=== PATIENT | female | born 1980 | race Caucasian/White ===

== ENCOUNTER → 2021-01-15 00:12 | Outpatient (CLI) | payer OTHER, SELFPAY ==
[2021-01-15 16:57] LABS: SARS-CoV-2 RNA PCR Positive
== END ==
PROVIDERS: Visit Provider Obstetrics & Gynecology
DX: U07.1 COVID-19 (principal)
CPT/HCPCS: C9803; U0003; U0005

== ENCOUNTER 2024-11-21 13:01 | Outpatient (CLI) | payer OTHER, SELFPAY ==
[2024-11-21 13:43] LABS: Hematocrit 40.8 % (37.0-47.0)
--- OUTSIDE RECORDS SUMMARY | 2024-11-22 13:45 | XMS_ITS | Data Portability ---
Author Organization [facility] Address [address] [place] [address] Care Team Providers Care Bed And Breakfast Cook Name Role Phone BROOKSPAULINA Primary Care Provider Assessment No assessment recorded. Plan of Treatment Reminders Order Date Submit Date Provider Last Modified By Organization Details Last Modified Time Details Appointments Robotic TLH 2024 10:30A M Sadia JUAREZ MD Not available Not available Not available Lab TSH, serum or plasma 2020 021 [facility] (Lab), [address] [place], [address], 12/23/2020 02:57:59 CBC w/ auto diff 2020 021 [facility] (Lab), [address], [place], [address], 12/23/2020 02:57:58 prolactin , serum 2020 021 [facility] (Lab), [address], [place], [address], 12/23/2020 02:57:59 Referral None recorded. Procedures None recorded. Surgeries robotic assisted hysterect luis f w/bilater al salpingo- oophorect luis f (SURG) 2024 025 [facility], [facility] [address], [place], [address], 09/25/2024 09:56:54 hysterosc opy, with endometri al ablation (SURG) 2020 021 [email or web address] [facility], [address], [place], [address], 01/27/2021 12:44:36 salpingec vivienne, laparosco pic (SURG) 2020 021 [email or web address] [facility], [address], [place], [address], 01/27/2021 12:44:37 Imaging US, pelvis 2020 021 [email or web address] [place], [address], [place], [address], 12/22/2020 15:36:30 US, transvagi nal 2020 021 KARSON [place], [address], [place], [address], 12/23/2020 16:42:18 US, pelvis, complete 2020 021 [email or web address] Not available 11/11/2021 10:11:41 Medication Orders norethind olivier acetate 5 mg tablet 2024 025 [email or web address] [id number], [address], [place], [address], 10/06/2024 09:10:21 progester one micronize d 200 mg capsule 2020 021 [email or web address] Not available 09/12/2024 12:38:27 Patient TargetsNo targets recorded. Patient InstructionsNo instructions recorded. Reason for Referral None Reported. Results Created Date Observation Date Name Description Value Unit Range Abnormal Flag Note LastModifiedBy Organization Detail LastModifiedTime 12/23/19 21 12/22/2020 CBC w/ auto diff WBC 6.2 10'3/ uL 3.6-10 .2 Not Available [facility] (Lab) [address], [place], [address], 12/23/2020 02:57:58 12/23/19 21 12/22/2020 CBC w/ auto diff RBC 3.30 10'6/ uL (based on docume nted legal sex) 4.10-5 .30 low Not Available [facility] (Lab) [address] , [place], [address], 12/23/2020 02:57:58 12/23/19 21 12/22/2020 CBC w/ auto diff HGB 9.2 g/dL (based on docume nted legal sex) 11.9-1 5.8 low Not Available [facility] (Lab) [address], [place], [address], 12/23/2020 02:57:58 12/23/19 21 12/22/2020 CBC w/ auto diff HCT 31.1 % (based on docume nted legal sex) 37.4-4 8.3 low Not Available [facility] (Lab) [address], [place], [address], 12/23/2020 02:57:58 12/23/19 21 12/22/2020 CBC w/ auto diff MCV 93.0 fL 82.0-9 9.0 Not Available [facility] (Lab) [address], [place], [address], 12/23/2020 02:57:58 12/23/1912/22/2020 CBC w/ auto diff MCH 28.0 pg 27.0-3 3.0 Not Available [facility] (Lab) [address], [place], [address], 12/23/2020 02:57:58 12/23/19 21 12/22/2020 CBC w/ auto diff MCHC 30.0 g/dL 32.0-3 6.0 low Not Available [facility] (Lab) [address] [place], [address], 12/23/2020 02:57:58 12/23/1912/22/2020 CBC w/ auto diff RDW 17.0 % 11.0-1 5.0 high Not Available [facility] (Lab) [address], [place], [address], 12/23/2020 02:57:58 12/23/19 21 12/22/2020 CBC w/ auto diff plt 305 10'3/ uL 150-45 0 Not Available [facility] (Lab) [address], [place], [address], 12/23/2020 02:57:58 12/23/19 21 12/22/2020 CBC w/ auto diff MPV 10.3 fL Not Available [facility] (Lab) [address], [place], [address], 12/23/2020 02:57:58 12/23/19 21 12/22/2020 CBC w/ auto diff NRBC's 0.00 % 0 Not Available [facility] (Lab) [address], [place], [address], 12/23/2020 02:57:58 12/23/19 21 12/22/2020 CBC w/ auto diff absolute NRBCs 0.0 10'3/ uL 0 Not Available [facility] (Lab) [address], [place], [address], 12/23/2020 02:57:58 12/23/1912/22/2020 CBC w/ auto diff neutrophils 68.0 % 37.0-7 2.0 Not Available [facility] (Lab) [address], [place], [address], 12/23/2020 02:57:58 12/23/1912/22/2020 CBC w/ auto diff lymphocytes 19.0 % 16.0-4 8.0 Not Available [facility] (Lab) [address], [place], [address], 12/23/2020 02:57:58 12/23/1912/22/2020 CBC w/ auto diff monocytes 11.0 % 4.0-14 .0 Not Available [facility] (Lab) [address] [place], [address], 12/23/2020 02:57:58 12/23/19 21 12/22/2020 CBC w/ auto diff eosinophils 1.0 % 0.0-9. 0 Not Available [facility] (Lab) [address] [place], [address], 12/23/2020 02:57:58 12/23/19 21 12/22/2020 CBC w/ auto diff basophils 1.0 % 0.0-2. 0 Not Available [facility] (Lab) [address] [place], [address], 12/23/2020 02:57:58 12/23/19 21 12/22/2020 CBC w/ auto diff immature granulocytes 0.0 % no define d refere nce range Not Available [facility] (Lab) [address], [place], [address], 12/23/2020 02:57:58 12/23/19 21 12/22/2020 CBC w/ auto diff absolute neutrophils 4.2 10'3/ uL 1.1-6. 0 Not Available [facility] (Lab) [address] [place], [address], 12/23/2020 02:57:58 12/23/19 21 12/22/2020 CBC w/ auto diff absolute lymphocytes 1.2 10'3/ uL 0.7-3. 4 Not Available [facility] (Lab) [address] [place], [address], 12/23/2020 02:57:58 12/23/19 21 12/22/2020 CBC w/ auto diff absolute monocytes 0.7 10'3/ uL 0.3-1. 0 Not Available [facility] (Lab) [address] [place], [address], 12/23/2020 02:57:58 12/23/19 21 12/22/2020 CBC w/ auto diff absolute eosinophils 0.1 10'3/ uL 0.0-0. 6 Not Available [facility] (Lab) [address], [place], [address], 12/23/2020 02:57:58 12/23/19 21 12/22/2020 CBC w/ auto diff absolute basophils 0.1 10'3/ uL 0.0-0. 1 Not Available [facility] (Lab) [address], [place], [address], 12/23/2020 02:57:58 12/23/19 21 12/22/2020 CBC w/ auto diff absolute immature granulocytes 0.00 10'3/ uL 0.00-0 .10 021 1:06 AM: P indic ates parti al resul ts on a panel have been relea sed. Addit ional resul ts will follo w. 021 1:06 AM: This resul t has been final verif ied. No addit ional or austin ed resul ts are expec shirley. Not Available [facility] (Lab) [address], [place], [address], 12/23/2020 02:57:58 12/23/19 21 12/22/2020 prola ctin, serum prolactin, total 23.50 NG/mL 4.79-2 3.30 high This assay was perfo rmed using [employer] ratio n reage nts and test kits. Value s obtai leida with other assay metho ds or kits canno t be used inter austin wendy . Not Available [facility] (Lab) [address], [place], [address], 12/23/2020 02:57:59 12/23/1912/22/2020 TSH, serum or plasm a TSH 2.28 uIU/m L 0.30-5 .33 Not Available [facility] (Lab) [address], [place], [address], 12/23/2020 02:57:59 09/12/19 25 09/12/2024 EMPOW ER MULTI -CANC ER (2+38 ) report summary NEGATI VE normal Negat kelvin for 40 out of 40 genes . No known patho genic or likel y patho genic varia nts were detec shirley in the 40 genes daisy zed. Not Available [facility] [address], [place], [address], 09/27/2024 19:33:21 09/12/19 25 09/12/2024 EMPOW ER MULTI -CANC ER (2+38 ) footnotes See Notes CLIA: ID #[id number] 2 Test perfo rmed by [facility]. [address] [facility] [address] [place] [id number] Maura Brenner, Ph.D. , [facility] , Labor atory Dire tor Not Available [facility] [address], [place], [address], 09/27/2024 19:33:21 12/23/19 21 12/22/2020 US, pelvi s No observ ation record ed. kota [place] [address], [place], [address], 12/22/2020 17:21:37 12/23/19 21 12/22/2020 US, trans vagin al No observ ation record ed. mary ann Jain [address], [place], [address], 12/23/2020 16:42:19 12/23/19 21 12/22/2020 US, pelvi s No observ ation record ed. mary ann [address], [place], [address], 12/23/2020 16:42:19 Result Notes None recorded. Procedures Surgical History Date Name Laterality Status Provider Name and Address Organization Details Recorded Time Date of Last Pap Smear completed Nancie Lucero [facility] 09/12/2024 12:39:17 8 completed Yudith Slime [facility] 12/23/2020 11:35:01 5 cryosurgery completed Misty Beard [facility] 12/18/2020 10:09:21 6 plastic repair procedure completed Misty [facility] 12/18/2020 10:23:39 Imaging Results Imaging Date Name Status LastModified by Organization Details LastModified Time 12/22/2020 US, pelvis completed kota [place] [address], [place], [address], 12/22/2020 17:21:37 12/22/2020 US, transvaginal completed mary ann [place] [address], [place], [address], 12/23/2020 16:42:19 12/22/2020 US, pelvis completed mary ann [address] [facility], [place], [address], 12/23/2020 16:42:19 Procedure Notes None recorded. Medical Equipment None Reported. Allergies Allergen ID Allergen Name Allergen Category Reaction Reaction Severity Criticality Documentation Date Start Date Code Code System Note Provider Name and Address Organization Details Recorded Time 05880 mold extract environme nt Not available Not available Not available 12/18/2020 11660 8 RxNorm Misty jasmine, [facility] 10:11:53 52535 POLLEN EXTRACTS environme nt,medica tion Not available Not available Not available 12/18/2020 44936 6 RxNorm Misty jasmine, [facility] 10:11:59 29473 amoxicill in medicatio n Not available Not available Not available 12/18/2020 723 RxNorm Misty Mcaley [facility] 10:12:05 Medications Name Sig Start Date Stop Date Status Note LastModified by Organization Details LastModified Time meloxicam 15 mg tablet TAKE 1 TABLET (15 MG TOTAL) BY MOUTH DAILY. active Not Available Not Available No t Available Ferrex 150 mg iron capsule TAKE 1 CAPSULE BY MOUTH EVERY DAY active Not Available Not Available No t Available phentermine 37.5 mg tablet TAKE 1 TABLET BY MOUTH DAILY BEFORE BREAKFAST active Not Available Not Available No t Available leflunomide 20 mg tablet TAKE 1 TABLET BY MOUTH EVERY DAY 09/12 completed Not Available Not Available Not Available Nexium 20 mg capsule,del ayed release Take 2 capsules every day by oral route. active Not Available Not Available No t Available alprazolam 0.5 mg tablet TAKE 1 TABLET (0.5 MG TOTAL) BY MOUTH 3 (THREE) TIMES A DAY NEEDED FOR ANXIETY. active Not Available Not Available No t Available citalopram 20 mg tablet TAKE 1 TABLET BY MOUTH EVERY DAY active Not Available Not Available No t Available progesteron e micronized 200 mg capsule Take 1 capsule every day by oral route for 12 days. 09/12 completed Not Available Not Available Not Available norethindro ne acetate 5 mg tablet TAKE 1 TABLET BY MOUTH EVERY DAY 2024 active Not Available Not Available Not Avai lable fluticasone propionate 50 mcg/actuati on nasal spray,suspe nsion 12/18 completed Not Available Not Available Not Available loratadine active Not Available Not Av ailable Not Available esomeprazol e magnesium 09/12 completed Not Available Not Available Not Available Orilissa 150 mg tablet TAKE 1 TABLET BY MOUTH EVERY DAY 09/12 completed Not Available Not Available Not Available Orilissa 12/23 completed Not Available Not Available Not Available Vitals Date Recorded Body height Body mass index (BMI) Body weight Systolic blood pressure Diastolic blood pressure Provider Name and Address Organization Details Last Updated DateTime 12/18/2020 154.94 cm 30.6 kg/m2 05098.96 g 125 mm[Hg] 88 mm[Hg] Misty Beard [facility] 10:17:55 Date Recorded Body height Body mass index (BMI) Body weight Systolic blood pressure Diastolic blood pressure Provider Name and Address Organization Details Last Updated DateTime 12/23/2020 154.94 cm 30 kg/m2 18783.19 g 128 mm[Hg] 87 mm[Hg] Yudith Palencia [facility] 11:34:56 Date Recorded Body height Body mass index (BMI) Body weight Systolic blood pressure Diastolic blood pressure Provider Name and Address Organization Details Last Updated DateTime 09/12/2024 154.94 cm 35.1 kg/m2 82289.18 g 128 mm[Hg] 88 mm[Hg] Nancie Nic [facility] 12:38:02 Social History Question Answer Notes LastModified by Organizat ion Details LastModified Time Tobacco Smoking Status Never Smoker Yudith Palencia [facility] 12/23/2020 11:35:05 Do You Have An Advance Directive? No Information n ot available 12/23/2020 What Is Your Level Of Alcohol Consumption? Occasional [email or web address] Information not available 12/18/2020 Are You Blind Or Do You Have Difficulty Seeing? No Information n ot available 12/23/2020 What Is Your Level Of Caffeine Consumption? Moderate Information not available 12/23/2020 How Much Tobacco Do You Chew? None Information not available 12/23/2020 In The 14 Days Before Symptom Onset, Have You Had Close Contact With A Laboratory-confirm ed COVID-19 While That Case Was Ill? No Information n ot available 12/23/2020 In The 14 Days Before Symptom Onset, Have You Had Close Contact With A Person Who Is Under Investigation For COVID-19 While That Person Was Ill? No Information not available 12/23/2020 Have You Been To An Area Known To Be High Risk For COVID-19? No Information not available 12/23/2020 Are You Deaf Or Do You Have Serious Difficulty Hearing? No Information not available 12/23/2020 What Type Of Diet Are You Following? REGULAR Information n ot available 12/23/2020 What Is The Highest Grade Or Level Of School You Have Completed Or The Highest Degree You Have Received? 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 Yes Information not available 12/23/2020 Do You Use Protection During Sex? Usually Information not available 12/23/2020 Do You Use Your Seat Belt Or Car Seat Routinely? Yes Information not available 12/23/2020 Do You Have Smoke And Carbon Monoxide Detectors In Your Home? Yes Information not available 12/23/2020 How Much Tobacco Do You Smoke? No Information not available 12/23/2020 Do You Feel Stressed (tense, Restless, Nervous, Or Anxious, Or Unable To Sleep At Night)? [id number] Information not available 12/23/2020 Do You Use Any Illicit Or Recreational Drugs? No Information not available 12/23/2020 Do You Use Sunscreen Routinely? No Information not available 12/23/2020 Has Tobacco Cessation Counseling Been Provided? No Information not available 12/23/2020 Have You Used IV Drugs? No Information not available 12/23/2020 Sex: Unknown Functional Status Question Answer Note LastModified by Organization D etails LastModified Time Are you able to walk? YESWOREST Information not available 12/23/2020 What is your exercise level? None Information not available 12/23/2020 Mental Status None recorded. Family History Relationship Description Onset Age of this Age Resolved Age Notes LastModified by Organization Details LastModified Time Mother Asthma [email or web address] Not available 10:26:33 Mother Carcinoma of uterine cervix, invasive [email or web address] Not available 2024 12:02:52 Mother Carcinoma in situ of colon [email or web address] Not available 2024 12:02:52 Mother Carcinoma in situ of uterus Not available 2024 12:02:52 Father Asthma [email or web address] Not available 10:26:33 Father Diabetes mellitus [email or web address] Not available 2020 10:28:49 Sister Asthma [email or web address] Not available 10:26:33 Sister Carcinoma of uterine cervix, invasive Not available 2024 12:02:52 Sister Carcinoma of uterine cervix, invasive [email or web address] Not available 2024 12:02:52 Sister Carcinoma in situ of colon Not available 2024 12:02:52 Sister Diabetes mellitus [email or web address] Not available 2020 10:28:49 Sister Cyst of ovary [email or web address] Not available 2024 12:02:52 Sister Cyst of ovary [email or web address] Not available 2024 12:02:52 Sister Uterine prolapse [email or web address] Not available 2024 12:02:52 Sister Mental disorder [email or web address] Not available 2020 10:32:49 Sister Mental disorder Not available 2020 10:52:23 Unspecified Relation Carcinoma in situ of breast 2 great aunts [email or web address] Not available 09/12/2024 12:02:52 Maternal Grandmother Carcinoma in situ of colon [email or web address] Not available 2024 12:02:52 Maternal Grandmother Diabetes mellitus [email or web address] Not available 2020 10:28:49 Maternal Uncle Carcinoma in situ of colon x3 [email or web address] Not available 2024 12:02:52 Maternal Uncle Carcinoma in situ of lung x3 [email or web address] Not available 12:02:52 Medical History Condition Response Allergies (Food, seasonal, environmental ) N Other N Blood Transfusion N Drug/Latex Allergies/Reactions N Breast Cancer N Dermatologic Disorders N Lung Disease N Defects or Inherited Disease N Breast Problem N Gestational Diabetes N Hematologic disorders N Anesthesia Complications N History of STI N Deep Vein Thrombosis N Polycystic ovary syndrome N Anxiety Disorder Y Autoimmune disease N Arthritis Y Infertility N Polyps N Acid Reflux (GERD) Y History of abnormal pap N Cancer N Stroke N Varicosities N Neurologic/Epilepsy N Endometriosis N High Cholesterol N Headaches N Fibromyalgia N Kidney Disease N Heart Problems N Kidney or Bladder Problems N Thyroid Problems N GI Problems N Eating Disorder N Anemia Y Art (IVF or FET) N Psychiatric Illness N Ovarian Cancer N Diabetes N Pulmonary (TB, Asthma) N Hepatitis/Liver Disease N No Past Medical History N Eczema N Urinary Tract Infection N Abuse/Domestic Violence N Asthma N Trauma/Violence N Depression/ depression N Heart Disease N Pre-Eclampsia N Hypertension N Osteoporosis N Thrombophilias N Gynecological History Statement/Question Response Flow Heavy Date of LMP 07/16/2024 N Was last menstrual period normal N STIs/STDs N BCPs Desired Control Method Hysterectom y Abnormal Pap Y On BCP's at Conception? N HPV Vaccine N Duration of Flow (days) 28 Current Control Method None Age at First Child 20 Are cycles usually normal N Sexually Active? Y Menses Monthly Y Age of first menstrual cycle 9 Date of Last Pap Smear 01/21/2024 Sexual Problems? Y LMP Definite 07/23/2017 N 07/23/2004 Obstetrics History GPAL:G 4 P 0 0 2 2 Type Value Induced 1 Spontaneous 1 Living 2 Total 4 Past Encounters Encounter ID Performer Location Encounter Start Date Encounter Closed Date Diagnosis/Indication Diagnosis SNOMED-CT Code Diagnosis ICD10 Code Diagnosis Note [id number] Davy Juarez MD [place] [address] [address] 12/18/2020 10:00:54 12/18/2020 12:50:12 Menometrorrhagia [id number] N92.1 This patient is a 40-year-ol d female with profound irregular and heavy bleeding. She has severe menometror rhagia. Her bleeding has affected her quality of life. She has bleeding accidents at work. She has had bleeding accidents in her car getting blood on her bedding and clothing. The patient and I disscussed the various causes of abnormal uterine bleeding, including polyps, fibroids, hyperplasi a, atypia, anovulatio n, etc. We reviewed the typical evaluation with labs, pelvic US and possible endometria l biopsy. Briefly discussed the options available for treatment (depending on the results of evaluation ) such as hormonal treatment (OCPs, progestins ), Mirena, endometria l ablation, and surgery. We spent more than 30 minutes face to face. [id number] Davy Juarez MD [place] [address] [address] 12/22/2020 12:26:44 12/22/2020 13:19:14 Menometrorrhagia [id number] N92.1 This patient is a 40-year-ol d female with profound irregular and heavy bleeding. She has severe menometror rhagia. Her bleeding has affected her quality of life. She has bleeding accidents at work. She has had bleeding accidents in her car getting blood on her bedding and clothing. The patient and I disscussed the various causes of abnormal uterine bleeding, including polyps, fibroids, hyperplasi a, atypia, anovulatio n, etc. We reviewed the typical evaluation with labs, pelvic US and possible endometria l biopsy. Briefly discussed the options available for treatment (depending on the results of evaluation ) such as hormonal treatment (OCPs, progestins ), Mirena, endometria l ablation, and surgery. We spent more than 30 minutes face to face. [id number] Davy Juarez MD [place] [address] [address] 12/23/2020 10:49:15 12/24/2020 15:29:43 Menometrorrhagia [id number] N92.1 This patient is a 40-year-ol d female with severe menometror rhagia. We have agreed to perform endometria l ablation and laparoscop ic bilateral salpingect luis f. She understand s risks, benefits, and alternativ es. She has completed the informed Consent process and is ready to proceed. Menorrhagia [id number] N9 2.0 [id number] Davy Juarez MD [place] [address] [address] 09/12/2024 12:01:33 09/12/2024 13:46:00 Abnormal uterine bleeding [id number] 9100 N93.9 This patient is a 44-year-ol d female presents for heavy vaginal bleeding. She has longstandi ng very heavy bleeding. Her menses are regular. However, they require double protection . Patient has accidents, getting blood on her bedding and clothing. Is affected work. She changes a pad or tampon every hour. She leaks blood around the pad and tampon. This bleeding has a profound impact on her quality of life and her activities of daily living. discussed treatment options. Patient bled down to hemoglobin of 7. She would like definitive surgical treatment. We agreed robotic assisted hysterecto my with bilateral salpingo-o ophorectom y. We talked about the risks, benefits, and alternativ es to oophorecto my. She has a strong family cancer history. Many of her relatives including first-degr ee relatives have had colon cancer. I spent over 30 minutes on her care in total. Family his tory of heritable malignancy [id number] 9109 Z80.9 Menorrhagia [id number] N9 2.0 Health Concerns Section Related Observation LastModified by Organization Detai ls LastModified Time None Recorded Concern Status LastModified by Organization Details LastModified Time None Recorded Advance Directives Directive N: Payers Encounter Date Sequence Insurance Name Policy Number Policy [place] Covered Member ID [place]ois Member ID Guarantor Name 12/18/2020 1 [employer] Rose Marie Alford [id number] Bhartisa Quinteros 12/22/2020 1 [employer] Rose Marie Casonl [id number] Bharti Quinteros 12/23/2020 1 [employer] Rose Marie Alford [id number] Bhartisa Quinteros 09/12/2024 1 [facility] [id number] Bharti Quinteros [id number] Bharti Quinteros Notes Date Note Type Note Provider Name and Address Organization Details Recorded Time 12/18/2020 text/html Beer - Abnormal BleedingReported bypatient.Onset/Timin g:past 6+ cycles; nonmenstrual bleeding: bleeding between periods Duration:daily Quality:passing clots;heavy Severity:changing pad/tampon every 1-2 hours; requires double protection; interferes with daily activities; requires getting up at night; bleeding through onto clothes/sheets Context:current contraception: (COCP) Associated Symptoms:dysmenorrhea ;pelvic pain;abdominal pain;fatigue;shortnes s of breath Davy Juarez MD [address], [place], [address], [facility] 12/18/2020 11:17:34 12/23/2020 text/html This patient is a 40-year-old female with profound irregular and heavy bleeding. She has severe menometrorrhagia. Her bleeding has affected her quality of life. She has bleeding accidents at work. She has had bleeding accidents in her car getting blood on her bedding and clothing. The patient had a pelvic ultrasound. The pelvic ultrasound was essentially normal. We have agreed to perform endometrial ablation and bilateral salpingectomy. I explained the procedure the patient in some detail. The patient understands the procedure. The procedure was described to the patient in great detail. the patient also understands the risks. The risks were also explained in detail. She understands that injuries May occur during surgery. She understands these injuries can result in hospitalization, more surgery, and severe illness. She understands there is risk of hemorrhage and infection. Davy Juarez MD [address], [place], [address], [facility] 12/23/2020 20:27:28 09/12/2024 text/html This patient is a 44-year-old female presents for heavy vaginal bleeding. She has longstanding very heavy bleeding. Her menses are regular. However, they require double protection. Patient has accidents, getting blood on her bedding and clothing. Is affected work. She changes a pad or tampon every hour. She leaks blood around the pad and tampon. This bleeding has a profound impact on her quality of life and her activities of daily living. discussed treatment options. Patient bled down to hemoglobin of 7. She would like definitive surgical treatment. We agreed robotic assisted hysterectomy with bilateral salpingo-oophorectomy . We talked about the risks, benefits, and alternatives to oophorectomy. She has a strong family cancer history. Many of her relatives including first-degree relatives have had colon cancer. I spent over 30 minutes on her care in total. Davy Juarez MD [address], [place], [address], [facility] 09/12/2024 13:03:47 OBGyn Episode Ob Episode Information Episode Created Date Number of Fetuses Patient Bloodtype Patient rh Status Prepregnancy Weight lbs Domestic Partner Domestic Partner Phone Father Name Assistant Professor Of Drama Status 12/19/19 21 1 CLOSED Fetus Data First Name Last Name Admitted to NICU Weight (g) Sex Living Outcome Pediatric Complications Fetus ID Race Codes Race Delivery Type 3175.14 4 M Full Term [id number] Vaginal Delivery Philippe Calculation Initial Philippe Date Initial Exam Date Initial Exam Provider Initial Ultrasound Date Last Menstrual Period Date Ultra Sound Weeks Gestation 0 Eighteen To Twenty Week Philippe Update Ultra Sound Date Fundal Height At Umbil Quickening Date Ultra Sound Latest Weeks Gestation Final Philippe Confirmed By Final Philippe Confirmed Date Final Philippe Date Ultra Sound Latest Days Gestation 0 0 Menstrual History Last Menstrual Date Menses Monthly On Bcp Conception Prior Menses Frequency Hcg Plus Date Menarche Onset Age Delivery Information Delivery Date Delivery Type Labor Anesthesia Weeks Gestation Incision Type Labor Labor Length Hrs Delivered By Post Complications Tubal Sterilization Discharge Date Comments 2 42 hypoglyc e myron Discharge Information Feeding Method Contraceptive Method Maternal HG B and HCT Levels Ob Episode Information Episode Created Date Number of Fetuses Patient Bloodtype Patient rh Status Prepregnancy Weight lbs Domestic Partner Domestic Partner Phone Father Name Assistant Professor Of Drama Status 12/19/19 21 1 CLOSED Fetus Data First Name Last Name Admitted to NICU Weight (g) Sex Living Outcome Pediatric Complications Fetus ID Race Codes Race Delivery Type , Spontane ous [id number] Philippe Calculation Initial Philippe Date Initial Exam Date Initial Exam Provider Initial Ultrasound Date Last Menstrual Period Date Ultra Sound Weeks Gestation 0 Eighteen To Twenty Week Philippe Update Ultra Sound Date Fundal Height At Umbil Quickening Date Ultra Sound Latest Weeks Gestation Final Philippe Confirmed By Final Philippe Confirmed Date Final Philipep Date Ultra Sound Latest Days Gestation 0 0 Menstrual History Last Menstrual Date Menses Monthly On Bcp Conception Prior Menses Frequency Hcg Plus Date Menarche Onset Age Delivery Information Delivery Date Delivery Type Labor Anesthesia Weeks Gestation Incision Type Labor Labor Length Hrs Delivered By Post Complications Tubal Sterilization Discharge Date Comments 4 Discharge Information Feeding Method Contraceptive Method Maternal HG B and HCT Levels Ob Episode Information Episode Created Date Number of Fetuses Patient Bloodtype Patient rh Status Prepregnancy Weight lbs Domestic Partner Domestic Partner Phone Father Name Assistant Professor Of Drama Status 12/19/19 21 1 CLOSED Fetus Data First Name Last Name Admitted to NICU Weight (g) Sex Living Outcome Pediatric Complications Fetus ID Race Codes Race Delivery Type 3005.04 7 F [id number] Vaginal Delivery Philippe Calculation Initial Philippe Date Initial Exam Date Initial Exam Provider Initial Ultrasound Date Last Menstrual Period Date Ultra Sound Weeks Gestation 0 Eighteen To Twenty Week Philippe Update Ultra Sound Date Fundal Height At Umbil Quickening Date Ultra Sound Latest Weeks Gestation Final Philippe Confirmed By Final Philippe Confirmed Date Final Philippe Date Ultra Sound Latest Days Gestation 0 0 Menstrual History Last Menstrual Date Menses Monthly On Bcp Conception Prior Menses Frequency Hcg Plus Date Menarche Onset Age Delivery Information Delivery Date Delivery Type Labor Anesthesia Weeks Gestation Incision Type Labor Labor Length Hrs Delivered By Post Complications Tubal Sterilization Discharge Date Comments 1 42 Discharge Information Feeding Method Contraceptive Method Maternal HG B and HCT Levels Ob Episode Information Episode Created Date Number of Fetuses Patient Bloodtype Patient rh Status Prepregnancy Weight lbs Domestic Partner Domestic Partner Phone Father Name Assistant Professor Of Drama Status 09/12/19 25 1 CLOSED Fetus Data First Name Last Name Admitted to NICU Weight (g) Sex Living Outcome Pediatric Complications Fetus ID Race Codes Race Delivery Type , Spontane ous [id number] Philippe Calculation Initial Philippe Date Initial Exam Date Initial Exam Provider Initial Ultrasound Date Last Menstrual Period Date Ultra Sound Weeks Gestation 0 Eighteen To Twenty Week Philippe Update Ultra Sound Date Fundal Height At Umbil Quickening Date Ultra Sound Latest Weeks Gestation Final Philippe Confirmed By Final Philippe Confirmed Date Final Philippe Date Ultra Sound Latest Days Gestation 0 0 Menstrual History Last Menstrual Date Menses Monthly On Bcp Conception Prior Menses Frequency Hcg Plus Date Menarche Onset Age Delivery Information Delivery Date Delivery Type Labor Anesthesia Weeks Gestation Incision Type Labor Labor Length Hrs Delivered By Post Complications Tubal Sterilization Discharge Date Comments 3 Discharge Information Feeding Method Contraceptive Method Maternal HG B and HCT Levels
--- OUTSIDE RECORDS SUMMARY | 2024-11-22 13:45 | XMS_ITS | Data Portability ---
Author Organization [facility] PenelopeCatrachito [facility], [facility] Address [address] [place] [address] Assessment No assessment recorded. Plan of Treatment Reminders Order Date Submit Date Provider Last Modified By Organization Details Last Modified Time Details Appointments None recorded. Lab rapid SARS CoV 2 Ag, QL IA, respiratory specimen 2022 023 [facility], [address] [facility], [place], [address], 3 17:06:58 rapid strep group A, throat 2022 023 [facility], [address] [facility], [place], [address], 3 17:06:58 rapid flu (A+B) 2022 023 [facility], [address] [facility], [place], [address], 3 17:06:57 Referral None recorded. Procedures None recorded. Surgeries None recorded. Imaging None recorded. Medication Orders albuterol sulfate HFA 90 mcg/actuati on aerosol inhaler 2022 023 [id number], [address] [place], [place], [address], 3 16:56:32 ondansetron 8 mg disintegrat ing tablet 2022 023 [id number], [address], [place], [address], 16:56:32 Patient TargetsNo targets recorded. Patient InstructionsNo instructions recorded. Reason for Referral None Reported. Results Created Date Observation Date Name Description Value Unit Range Abnormal Flag Note LastModifiedBy Organization Detail LastModifiedTime 02/18/20 23 02/17/2023 rapid flu (A+B) Flu negati ve Not Available [facility] [address] [place], [address], 02/17/2023 16:31:09 02/18/20 23 02/17/2023 rapid strep group A, throa t Strep negati ve Not Available [facility] [address] [place], [address], 02/17/2023 16:31:01 02/18/20 23 02/17/2023 rapid SARS CoV 2 Ag, QL IA, respi rator y speci men COVID-19 ANTIGEN negati ve Not Available [facility] [address] [place], [address], 02/17/2023 16:31:00 Result Notes None recorded. Medical Equipment None Reported. Allergies Allergen ID Allergen Name Allergen Category Reaction Reaction Severity Criticality Documentation Date Start Date Code Code System Note Provider Name and Address Organization Details Recorded Time 095257 amoxicill in medicatio n Not available Not available Not available 02/17/2023 723 RxNorm Heike Parmar RN [facility] 16:11:44 Medications Name Sig Start Date Stop Date Status Note LastModified by Organization Details LastModified Time ondansetron 8 mg disintegrati ng tablet Place 1 tablet twice a day by translingua l route as needed. 2022 active Not Available Not Available Not Avai lable albuterol sulfate HFA 90 mcg/actuatio n aerosol inhaler INHALE 2 PUFFS EVERY 4 HOURS BY INHALATION ROUTE NEEDED active Not Available Not Available No t Available Vitals Date Recorded Body height Body mass index (BMI) Body weight Heart rate Respiratory rate Oxygen saturation Oxygen saturation in Arterial blood by Pulse oximetry Body temperature Systolic blood pressure Diastolic blood pressure Provider Name and Address Organization Details Last Updated DateTime 3 154.94 cm 33.7 kg/m2 48009.1 6 g 101 /min 16 /min 98 % 98 % 98.5 [degF] 106 mm[Hg] 78 mm[Hg] Heike Parmar RN [facility] 16:13:26 Social History None recorded. Functional Status None recorded. Mental Status None recorded. Family History Nothing Reported. Medical History No medical history recorded. Gynecological HistoryNo gynecological history recorded. Obstetrics History GPAL:G 0 P 0 0 0 0 Past Encounters Encounter ID Performer Location Encounter Start Date Encounter Closed Date Diagnosis/Indication Diagnosis SNOMED-CT Code Diagnosis ICD10 Code Diagnosis Note [id number] Artemio Leach MD [facility] [address] [place] [address] 02/17/2023 15:48:23 02/17/2023 17:20:10 Headache 76673227 R51.9 RCA, RST, Flu neg Fatigue 61614503 R53.83 Asthma 193997264 J45.90 9 work note for 3 days Nausea 356857146 R11.0 Health Concerns Section Related Observation LastModified by Organization Detai ls LastModified Time None Recorded Concern Status LastModified by Organization Details LastModified Time None Recorded Advance Directives Directive None Recorded Payers Encounter Date Sequence Insurance Name Policy Number Policy Dubois Covered Member ID Dubois Member ID Guarantor Name 02/17/2023 1 [employer] Bharti Quinteros [id number] Bharti Quinteros Notes Date Note Type Note Provider Name and Address Organization Details Recorded Time 02/17/2023 text/html 43-year-old fema le with complaints of fatigue, nausea and possible syncope last evening. She's had upper respiratory symptoms for several days. No fever, no chills. Symptoms are similar to how she presented when she contracted Covid 2 years ago. She was hospitalized for 6 days in ICU. She was diagnosed with COVID induce asthma, bronchitis. Artemio Leach MD [address] [facility], [place], [address], [facility] 02/17/2023 16:56:58 OBGyn Episode No OBEpisode recorded.
--- OUTSIDE RECORDS SUMMARY | 2024-11-22 13:46 | XMS_ITS | Clinical Summary ---
Author Organization [facility] [address] Address [address] [place] [address] Care Team Providers Care Vaccine Manager Name Role Phone Sterling Phillips DO Primary Care Provider + Allergies Active Allergy Reactions Criticality Noted Date Comments Amoxicillin Unknown 02/13/[address] (NexIUM) 20 mg capsule Take 1 capsule (20 mg total) by mouth 2 (two) times a day Active loratadine (CLARITIN REDITABS) 10 mg disintegrating tablet Take 1 tablet (10 mg total) by mouth daily Active meloxicam (MOBIC) 15 mg tablet Take 1 tablet (15 mg total) by mouth daily 90 tablet 3 02/13/20 24 025 Active tirzepatide, weight loss, (Zepbound) 2.5 mg/0.5 mL pen injector Inject 0.5 mL (2.5 mg total) under the skin every 7 days 2 mL 1 02/13/20 24 Active Additional Information Patient not taking.Reported on 04/29/2024 citalopram (CeleXA) 20 mg tablet TAKE 1 TABLET BY MOUTH EVERY DAY 90 tablet 2 03/19/20 24 Active levonorgestreL-eth inyl estrad (LUTERA) 0.1-20 mg-mcg per tablet Take 1 tablet by mouth daily 28 tablet 12 05/14/20 24 025 Active ALPRAZolam (XANAX) 0.5 mg tablet TAKE 1 TABLET (0.5 MG TOTAL) BY MOUTH 3 (THREE) TIMES A DAY NEEDED FOR ANXIETY. 60 tablet 3 07/22/20 24 Active albuterol HFA (PROVENTIL HFA,VENTOLIN HFA,PROAIR HFA) 90 mcg/actuation inhaler INHALE 2 PUFFS EVERY 4 HOURS BY INHALATION ROUTE NEEDED Active hydroxychloroquine (PLAQUENIL) 200 mg tablet Take 2 tablets (400 mg total) by mouth daily 60 tablet 2 08/04/19 25 Active Active Problems Problem Noted Date Diagnosed Date Seronegative arthritis 02/13/2024 Assessment & Plan (05/14/2024 9:51 AM CDT): Follow up with Rheumatology I started her on Lutera control Assessment & Plan (02/13/2024 10:40 AM CDT): Set up with Rheumatology I am also going to start her on meloxicam Anxiety 02/13/2024 Assessment & Plan (05/14/2024 9:51 AM CDT): Continue alprazolam Assessment & Plan (02/13/2024 10:40 AM CDT): She is off her alprazolam I would continue citalopram Moderate episode of recurrent major depressive d isorder 02/13/2024 Assessment & Plan (05/14/2024 9:51 AM CDT): Continue citalopram Assessment & Plan (02/13/2024 10:40 AM CDT): Continue citalopram Obesity (BMI 30-39.9) 02/13/2024 Assessment & Plan (05/14/2024 9:52 AM CDT): Refill phentermine Assessment & Plan (02/13/2024 10:40 AM CDT): Start phentermine Immunizations Immunization Administration Dates Next Due Influenza, Unspecified 04/22/2024(Deferr ed: Patient decision),04/22/2023(Deferred: Patient decision),04/22/2022(Deferred: Patient decision) Family History Medical History Relation Name Comments Cancer Brother Diabetes Father Heart disease Father Stroke Father Colon cancer Maternal Grandmother Diabetes Maternal Grandmother Colon cancer Mother Colon cancer Sister Relation Name Status Comments Brother Father Maternal Grandmother Mother Sister Social History Tobacco Use Types Packs/Day Years Used Date Smoking Tobacco: Never Passive Smoke Exposure: Never Smokeless Tobacco: Never Tobacco Cessation:Counseling Given: Not Answered PHQ-2 Answer Date Recorded PHQ-2 Total Score (If total score is 3 or more points, staff should administer the PHQ-9) 0 05/14/2024 Comments No Sex and Gender Information Value Date Recorded Sex Assigned at Not on file Legal Sex Female 3:04 PM CDT Gender Identity Not on file Sexual Orientation Not on file Obstetrics History Last Filed Vital Signs Vital Sign Reading Time Taken Comments Blood Pressure 125/85 08/04/2024 9:18 AM SPRAY CEMENTER Pulse 86 08/04/2024 9:18 AM SPRAY CEMENTER Temperature 36.8 C (98.3 F) 08/04/2024 9:18 AM SPRAY CEMENTER Respiratory Rate - - Oxygen Saturation 100% 08/04/2024 9:18 AM SPRAY CEMENTER Inhaled Oxygen Concentration - - Weight 83.3 kg (183 lb 9.6 oz) 08/04/2024 9:18 A M SPRAY CEMENTER Height 154.9 cm (5' 1 ) 08/04/2024 9:18 AM SPRAY CEMENTER Body Mass Index 34.69 08/04/2024 9:18 AM SPRAY CEMENTER Plan of Treatment Health Maintenance Due Date Last Done Comments Breast Cancer Screening-Mammogram 1981 Cervical Cancer Screening 1981 DTaP/Tdap/Td Vaccine (1 - Tdap) 02/02/1992 Varicella Vaccines (1 of 2 - 13+ 2-dose series) 1994 Regular Well Visit/Exam 18-64 1999 Influenza Vaccine (Season Ended) 2025 Depression Screening 05/14/2025 05/14/2024, 02/13/2024 Hepatitis B Screening Completed 04/29/2024 Hepatitis C Screening Completed 04/29/2024 HPV Vaccines Aged Out No longer eligi ble based on patient's age to complete this topic Pneumococcal vaccine <65 Aged Out No longer eligible based on patient's age to complete this topic Procedures Procedure Name Priority Date/Time Associated Diagnosis Comments HEPATITIS C ANTIBODY Routine 04/29/2024 3:24 PM CDT Seronegative arthritis from Last 3 Months or Most Recently Relevant to Health Maintenance Results * Hepatitis C antibody Blood (04/29/2024 3:24 PM CDT) Hep C Ab Nonreactive Nonreactive Comment: Interpretive Data Nonreactive: Antibodies to HCV not detected. Does NOT exclude the possibility of recent exposure to HCV. Equivocal: Equivocal for HCV antibodies. Supplemental molecular testing will be automatically performed to determine infection status in accordance with current CDC screening recommendations. Reactive: Positive for HCV antibodies. This may represent current or past HCV infection. Supplemental molecular testing will be automatically performed to determine current infection status in accordance with current CDC screening recommendations. Interpretive data was last revised on 2019. Blood 04/29/2024 3:24 PM CDT 04/29/2024 8:28 PM CDT Xavier Park MD LAB MICROBIOLOGY - GENERAL ORDERABLES Final Result Performing Organization Address City/State/[facility] Phone Number [facility] [id number] Department of Laboratories [place] [phone] from Last 3 Months or Most Recently Relevant to Health Maintenance Insurance [facility] Care Teams Vaccine Manager Relationship Specialty Start Date End Date Sterling Phillips DO PCP - General Family Medicine 02/13/24
--- OUTSIDE RECORDS SUMMARY | 2024-11-22 13:46 | XMS_ITS | Referral Summary ---
Author Organization [facility] [address] Address [address] [place] [address] Care Team Providers Care Bioprocess Engineer Name Role Phone Sterling Phillips DO Primary [...] ed: Patient decision),04/22/2023(Deferred: Patient decision),04/22/2022(Deferred: Patient decision) Social History Tobacco Use Types Packs/Day Years [...] on file Sexual Orientation Not on file Last Filed Vital Signs Vital Sign Reading Time Taken Comments Blood Pressure 125/85 08/04/2024 9:18 AM OUT AND OUT CIGAR MAKER HAND Pulse 86 08/04/2024 9:18 AM OUT AND OUT CIGAR MAKER HAND Temperature 36.8 C (98.3 F) 08/04/2024 9:18 AM OUT AND OUT CIGAR MAKER HAND Respiratory Rate - - Oxygen Saturation 100% 08/04/2024 9:18 AM OUT AND OUT CIGAR MAKER HAND Inhaled Oxygen Concentration - - Weight 83.3 kg (183 lb 9.6 oz) 08/04/2024 9:18 A M [employer] Height 154.9 cm (5' 1 ) 08/04/2024 9:18 AM OUT AND OUT CIGAR MAK[employer] HAND Body Mass Index 34.69 08/04/2024 9:18 AM OUT AND OUT CIG[employer] MAK[employer] HAND Plan of Treatment Not on file Procedures Procedure Name Priority Date/Time Associated Diagnosis [...] LAB MICROBIOLOGY - GENERAL [place] [id number] [facility] Department [place] [address] from Last 3 Months or Most Recently Relevant to Health Maintenance Insurance [facility] Care Teams Bioprocess Engineer Relationship Specialty Start Date End Date Sterling Phillips DO PCP - General Family Medicine 02/13/24
--- OUTSIDE RECORDS SUMMARY | 2024-11-22 13:46 | XMS_ITS | Clinical Summary ---
Author Organization [facility] Address [address] [place] [address] Phone Care Team Providers Care Sat Act Instructor Name Role Phone Sterling Phillips DO Primary Care Provider [phone] Allergies Active Allergy Reactions Criticality Noted Date Comments Amoxicillin Hives,Nausea and Vomiting 6 Medications ALPRAZolam (XANAX) 0.5 mg tablet 6 Active esomeprazole (NEXIUM) 20 mg Capsule, Delayed Release(E.C.) Take 20 mg by mouth daily before breakfast. Active fluticasone (FLONASE) 50 mcg/spray [place], SuspensionIndic ations:Acute bacterial sinusitis Administer 2 Sprays in each nostril daily. 16 Gram 9 Active albuterol sulfate HFA 90 mcg/actuation aerosol inhaler INHALE 2 PUFFS EVERY 4 HOURS BY INHALATION ROUTE NEEDED Active ALPRAZolam (XANAX) 0.5 mg tablet take 1 tablet by mouth nightly as needed for anxiety 4 Active citalopram (CeleXA) 20 mg tablet 4 Active esomeprazole (NexIUM) 20 mg Capsule, Delayed Release(E.C.) Active ondansetron (ZOFRAN ODT) 8 mg Tablet, Rapid Dissolve Place 1 tablet twice a day by translingual route as needed. 3 Active hydroxychloroqu ine sulfate (HYDROXYCHLOROQ UINE ORAL) Take by mouth. Acti ve Active Problems No known active problems Encounters Date Type Department Care Team Description 11/04/2024 External Device Data [facility]STRACTION Provider, Abstract 11/04/2024 External Device Data [facility]CTION Provider, Abstract 10/21/2024 External Device Data [facility] Provider, Abstract 10/21/2024 External Device Data [facility] Provider, Abstract 10/10/2024 6:58 AM CDT - 10/10/2024 11:59 PM CDT Hospital Encounter [facility] [address] [place] [address] Jenna Bell NP Discharge Disposition: Home or Self Care 10/08/2024 External Device Data [facility] ABSTRACTION Provider, Abstract 10/01/2024 External Device Data [facility]STRACTION Provider, Abstract 09/30/2024 External Device Data [facility]STRACTION Provider, Abstract 09/29/2024 External Device Data [facility]STRACTION Provider, Abstract 09/27/2024 External Device Data [facility]STRACTION Provider, Abstract 09/26/2024 External Device Data [facility]STRACTION Provider, Abstract 09/10/2024 External Device Data [facility]STRACTION Provider, Abstract 09/09/2024 External Device Data [facility] ABSTRACTION Provider, Abstract 08/26/2024 External Device Data [facility] ABSTRACTION Provider, Abstract from Last 3 Months Family History Medical History Relation Name Comments Cancer Brother 1 Patrick Zena Cancer Brother 2 Ba Zena Diabetes Father Matteo Zena Heart Attack Father Matteo Waterford Other Father Matteo [place] Passed of a ma ssive heart attack Stroke Father Matteo [place] 2 strokes Colon Cancer Maternal Grandmother Thelma Eng She pas sed of Colon Cancer Diabetes Maternal Grandmother Thelma Albertina Cancer Mother Veronica [place]ford Cervical Cervical Cancer Mother Veronica [place] Colon Cancer Mother Veronica [place] She passed of Colon Cancer Ovarian Cancer Mother Veronica Zena Breast Cancer Paternal Aunt Colon Cancer Sister 1 Rosio Avery She passed of C olon Cancer Ovarian Cancer Sister 1 Rosio Avery Cancer Sister 2 Whitney Silas Cervical Mental illness Sister 2 Whitney Silas Ovarian Cancer Sister 2 Whitney Silas Cancer Sister 3 Nilsa Zena Cervical Uterine Cancer Neg Hx Relation Name Status Comments Brother 1 Patrick Zena Brother 2 Ba Zena Father Matteo Zena Maternal Grandmother Thelma Eng Mother Veronica Zena Paternal Aunt Sister 1 Rosio Avery Sister 2 Whitney Rosen Sister 3 Nilsa Zena Social History Tobacco Use Types Packs/Day Years Used Date Smoking Tobacco: Never Smokeless Tobacco: Never Tobacco Cessation:Counseling Given: Not Answered Alcohol Use Standard Drinks/Week Comments Not Currently 8 (1 standard drink = 0.6 oz pur e alcohol) rarely Feeling Safe Answer Date Recorded Are you in a relationship wi th someone who hurts you emotionally and/or physically? No 08/10/2024 Comments No Sex and Gender Information Value Date Recorded Sex Assigned at Female 09/15/2024 8:48 AM CLIMATOLOGIST Legal Sex Female 5:07 PM CLIMATOLOGIST Gender Identity Female 09/15/2024 8:48 AM CLIMATOLOGIST Sexual Orientation Not on file Last Filed Vital Signs Vital Sign Reading Time Taken Comments Blood Pressure 121/88 08/10/2024 7:00 PM CLIMATOLOGIST Pulse 94 08/10/2024 7:00 PM CLIMATOLOGIST Temperature 36.8 C (98.3 F) 08/10/2024 4:15 PM CLIMATOLOGIST Respiratory Rate 18 08/10/2024 7:00 PM CLIMATOLOGIST Oxygen Saturation 97% 08/10/2024 7:00 PM CLIMATOLOGIST Inhaled Oxygen Concentration - - Weight 82.3 kg (181 lb 6.4 oz) 08/10/2024 12:43 PM CLIMATOLOGIST Height 154.9 cm (5' 1 ) 08/10/2024 12:43 PM CLIMATOLOGIST Body Mass Index 34.28 08/10/2024 12:43 PM CLIMATOLOGIST Plan of Treatment Health Maintenance Due Date Last Done Comments Pre-Diabetes and Diabetes Screening 1981 DTAP/TDAP/TD VACCINES (1 - Tdap) 02/02/2000 HEPATITIS B VACCINES (1 of 3 - 19+ 3-dose series) 02/02/2000 INFLUENZA VACCINE (#1) 2024 BREAST CANCER SCREENING 10/10/2025 10/10/2024 PAP SMEAR 01/22/2027 01/23/2024, 12/01/2015 CERVICAL CANCER SCREENING 01/22/2029 HPV/Cotest (21-29) 01/22/2029 01/23/2024, 12/01/2015 HPV/Cotest (30-65) 01/22/2029 01/23/2024, 12/01/2015 HPV VACCINES Aged Out No longer eligi ble based on patient's age to complete this topic Procedures Procedure Name Priority Date/Time Associated Diagnosis Comments MAMMO 3D ELIO SCREEN BILAT W OR WO CAD Routine 10/10/2024 7:20 AM CDT Breast cancer screening by mammogram CERV/VAG CYTO SCREEN PAP W/HPV Routine 01/23/2024 8:52 AM CDT Screening for cervical cancer from Last 3 Months or Most Recently Relevant to Health Maintenance Results * MAMMO 3D ELIO SCREEN BILAT W OR WO CAD (10/10/2024 7:20 AM CDT) Anatomical Region Laterality Modality Breast Bilateral Mammography 10/10/2024 7:25 AM CDT Impressions 10/10/2024 8:48 AM CDT IMPRESSION: No mammographic evidence of malignancy. OVERALL FINAL ASSESSMENT: BI-RADS Category 1: Negative mammogram. RECOMMENDATION: Bilateral screening mammogram in one year. DICTATION LOCATION: [facility] 10/10/2024 8:48 AM CDT BILATERAL SCREENING DIGITAL MAMMOGRAM WITH 3D TOMOSYNTHESIS AND CAD DATE: 10/10/2024 7:20 AM COMPARISON: This is the patient's baseline mammogram. No previous breast imaging studies are available for comparison. HISTORY: Screening mammogram. TECHNIQUE: Low-dose full-field digital breast tomosynthesis examination was performed with 2D and 3D acquisitions. Examination is read in conjunction with computer aided detection. BREAST COMPOSITION: The breasts are heterogeneously dense, which may obscure small masses. FINDINGS: There is no suspicious mass, clustered microcalcification, or architectural distortion in either breast on 2D or 3D images. us Jenna Bell CARD PLACER MAMMO ORDERABLES Final Res ult * CERV/VAG CYTO SCREEN PAP W/HPV (01/23/2024 8:52 AM CDT) CLINICAL INFORMATION [facility] [place] Comment:None given LAST MENSTRUAL PERIOD [facility] [place] Comment:NONE GIVEN PREV PAP: [facility] [place] Comment:NONE GIVEN PREV BX: [facility] [place] Comment:NONE GIVEN SOURCE [facility] [place] Comment:Endocervix ADEQUACY: [facility] [place] Comment: Satisfactory for evaluation. Endocervical/transformation zone component present. Age and/or menstrual status not provided PAP INTERP [facility] [place] Comment: Cytology Results: Negative for intraepithelial lesion or malignancy. COMMENT (PAP TEST) [facility] [place] Comment: This Pap test has been evaluated with computer assisted technology. OUTSIDE SALES ASSOCIATE: Nickolas est Gerald [place] Comment: YQ, CT(ASCP) CT screening location: [place] [address] [place] [address] EXPLANATORY NOTE [facility] [place] Comment: EXPLANATORY NOTE: The Pap is a screening test for cervical cancer. It is not a diagnostic test and is subject to false negative and false positive results. It is most reliable when a satisfactory sample, regularly obtained, is submitted with relevant clinical findings and history, and when the Pap result is evaluated along with historic and current clinical information. HPV E6/E7 Not Detected Not Detected [facility] [place] Comment: Methodology: Supervisor Grounds-Mediated Amplification This assay detects E6/E7 viral messenger RNA (mRNA) from 14 high-risk HPV types (16,18,31,33,35,39,45,51,52,56,58,59,66,68). Cervical sources are required for HPV testing. If a vaginal source from a patient who has had a total hysterectomy with removal of cervix was submitted, please contact the testing laboratory for alternative testing options. For additional information, please refer to http://education.ThingWorx/faq/RAD181r6 (This link if provided for information/ educational purposes only.) Test Performed at: [facility] [id number] [address] Soraya LORENZANA Genital SWAB OF ENDOCERVIX / Unknown 01/23/2024 8:52 AM CDT 01/24/2024 1:44 AM CDT us Jenna Bell NP PATHOLOGY/CYTOLOGY ORDERAB LES Final Result [facility] [phone] [facility] [address] [place] [address] from Last 3 Months or Most Recently Relevant to Health Maintenance Insurance Care Teams Sat Act Instructor Relationship Specialty Start Date End Date Sterling Phillips DO PCP - General 08/14/13
== END 2024-11-21 13:02 | disposition home or self-care (01) ==
LOC: ANHSURGERY 13:07
PROVIDERS: Anesthesiology; Visit Provider Obstetrics & Gynecology
DX: Z41.9 Encounter for procedure for purposes other than remedying health state, unspecified (principal); D64.9 Anemia, unspecified
CPT/HCPCS: 36415; 85014; 85018; 86850; 86900; 86901

== ENCOUNTER 2024-11-26 01:11 | Day surgery (SDC) | payer OTHER, SELFPAY ==
[2024-11-12 13:15] VITALS: BMI 34.4
--- NOTE | 2024-11-12 13:27 | PC.NURSE ---
Report to the Outpatient Waiting Room, entrance under the green pavilion located off [facility], at time __0830__ on date __11/26/24__. Planned Procedure Time: ___1030___.? Time changes happen often and if your time is changed the preop area will call you the afternoon before. - You and your visitor will be asked to self-screen and do not enter if you have any COVID symptoms. Please call surgeon if you need to reschedule. - A mask is optional within the hospital at this time. Patients may have clear liquids (water, carbonated beverages, clear teas, apple juice) until 3 hours prior to surgery with a maximum of 20 ounces. - No food from midnight until time of surgery and no smoking, or chewing tobacco (or any form of nicotine). No chewing gum, candy or mints. Take only the following medications with a SIP of water on the morning of surgery: ____alprazolam and citalopram____ DO NOT STOP ANY OF YOUR OTHER PRESCRIPTION MEDICATIONS PRIOR TO SURGERY EXCEPT THE FOLLOWING Hold all vitamins and supplements for 3 days per anesthesiologist. Please no make-up, nail turkish, hairspray, perfume, deodorant, or body powder the day of surgery.? No jewelry (including any body piercings) or valuables the day of surgery, leave them at home.? Please take a shower or bath the night before, or the morning of, surgery with an antibacterial soap.? Wear comfortable, loose fitting clothing. - Jewelry must be removed prior to entering the operating room.? Rings and piercings that are not removed may be cut off. - The hospital will not accept responsibility for valuables.? - Please leave all valuables, including medications, at home the day of surgery. If you are going home after surgery, a licensed livery car driver must drive you home.? - NO public transportation without another adult if you receive anesthesia. - We recommend that an adult stay with you for 24 hours following discharge. - We also recommend that you do not drive, make important decision, drink alcoholic beverages, or take any drugs that were not prescribed by your health care provider for at least 24 hours after your discharge time. Follow any additional instructions given to you from your surgeon. Telephone instructions given to ___Theresa___and asked if any additional questions and then verbalized understanding. Patient advised to call surgeon office or pre surgery nurse liaison [phone] if any additional questions.
[2024-11-26] VITALS (12 sets, daily range): BP systolic 108–155; BP diastolic 67–89; PULSE 83–112; RESP 14–20; TEMP 36.1–37.3; O2SAT 94–99; BMI 35.2
--- OUTSIDE RECORDS SUMMARY | 2024-11-26 01:15 | XMS_ITS | Clinical Summary ---
Author Organization [facility] [id number] Address [address] [place] [address] Care Team Providers Care Turning Sander Tender Name Role Phone Sterling Phillips DO Primary [...] Comments Blood Pressure 125/85 08/04/2024 9:18 AM ADJUNCT NURSING FACULTY Pulse 86 08/04/2024 9:18 AM ADJUNCT NURSING FACULTY Temperature 36.8 C (98.3 F) 08/04/2024 9:18 AM ADJUNCT NURSING FACULTY Respiratory Rate - - Oxygen Saturation 100% 08/04/2024 9:18 AM ADJUNCT NURSING FACULTY Inhaled Oxygen Concentration - - Weight 83.3 kg (183 lb 9.6 oz) 08/04/2024 9:18 A M ADJUNCT NURSING FACULTY Height 154.9 cm (5' 1 ) 08/04/2024 9:18 AM ADJUNCT NURSING FACULTY Body Mass Index 34.69 08/04/2024 9:18 AM ADJUNCT NURSING FACULTY Plan of Treatment Health Maintenance Due Date [...] GENERAL ORDERABLES Final Result Performing Organization Address City/State/[facility] Phone Number [facility] [address] Department of Laboratories [place] [phone] from Last 3 Months or Most Recently Relevant to Health Maintenance Insurance [facility] Care Teams Turning Sander Tender Relationship Specialty Start Date End Date Sterling Phillips DO PCP - General Family Medicine 02/13/24
--- OUTSIDE RECORDS SUMMARY | 2024-11-26 01:15 | XMS_ITS | Data Portability ---
Author Organization [facility] Address [address] [place] [address] Care Team Providers Care Human Resources Executive Name Role Phone BROOKSPAULINA Primary Care Provider Assessment No assessment recorded. Plan of Treatment Reminders Order Date Submit Date Provider Last Modified By Organization Details Last Modified Time Details Appointments Robotic TLH 2024 10:30A M Sadia JUAREZ MD Not available Not available Not available Lab TSH, serum or plasma 2020 021 [facility] (Lab), [address] [place], [address], 12/23/2020 02:57:59 CBC w/ auto diff 2020 021 [facility] (Lab), [address], [place], [address], 12/23/2020 02:57:58 prolactin , serum 2020 021 [facility] (Lab), [address], [place], [address], 12/23/2020 02:57:59 Referral None recorded. Procedures None recorded. Surgeries robotic assisted hysterect luis f w/bilater al salpingo- oophorect luis f (SURG) 2024 025 [facility], [facility] [address], [place], [address], 09/25/2024 09:56:54 hysterosc opy, with endometri al ablation (SURG) 2020 021 [email or web address] [facility], [address], [place], [address], 01/27/2021 12:44:36 salpingec vivienne, laparosco pic (SURG) 2020 021 [email or web address] [facility], [address], [place], [address], 01/27/2021 12:44:37 Imaging US, pelvis 2020 021 [email or web address] [place], [address], [place], [address], 12/22/2020 15:36:30 US, transvagi nal 2020 021 KARSON [place], [address], [place], [address], 12/23/2020 16:42:18 US, pelvis, complete 2020 021 [email or web address] Not available 11/11/2021 10:11:41 Medication Orders norethind olivier acetate 5 mg tablet 2024 025 [email or web address] [id number], [address] [facility], [facility], [place], [address], 10/06/2024 09:10:21 progester one micronize d 200 mg capsule 2020 021 [email or web address] Not available 09/12/2024 12:38:27 Patient TargetsNo targets recorded. Patient InstructionsNo instructions recorded. Reason for Referral None Reported. Results Created Date Observation Date Name Description Value Unit Range Abnormal Flag Note LastModifiedBy Organization Detail LastModifiedTime 12/23/19 21 12/22/2020 CBC w/ auto diff WBC 6.2 10'3/ uL 3.6-10 .2 Not Available [facility] (Lab) [address], [place], [address], 12/23/2020 02:57:58 12/23/19 21 12/22/2020 CBC w/ auto diff RBC 3.30 10'6/ uL (based on docume nted legal sex) 4.10-5 .30 low Not Available [facility] (Lab) [address] , [place], [address], 12/23/2020 02:57:58 12/23/19 21 12/22/2020 CBC w/ auto diff HGB 9.2 g/dL (based on docume nted legal sex) 11.9-1 5.8 low Not Available [facility] (Lab) [address], [place], [address], 12/23/2020 02:57:58 12/23/19 21 12/22/2020 CBC w/ auto diff HCT 31.1 % (based on docume nted legal sex) 37.4-4 8.3 low Not Available [facility] (Lab) [address], [place], [address], 12/23/2020 02:57:58 12/23/19 21 12/22/2020 CBC w/ auto diff MCV 93.0 fL 82.0-9 9.0 Not Available [facility] (Lab) [address], [place], [address], 12/23/2020 02:57:58 12/23/1912/22/2020 CBC w/ auto diff MCH 28.0 pg 27.0-3 3.0 Not Available [facility] (Lab) [address], [place], [address], 12/23/2020 02:57:58 12/23/19 21 12/22/2020 CBC w/ auto diff MCHC 30.0 g/dL 32.0-3 6.0 low Not Available [facility] (Lab) [address] [place], [address], 12/23/2020 02:57:58 12/23/1912/22/2020 CBC w/ auto diff RDW 17.0 % 11.0-1 5.0 high Not Available [facility] (Lab) [address], [place], [address], 12/23/2020 02:57:58 12/23/19 21 12/22/2020 CBC w/ auto diff plt 305 10'3/ uL 150-45 0 Not Available [facility] (Lab) [address], [place], [address], 12/23/2020 02:57:58 12/23/19 21 12/22/2020 CBC w/ auto diff MPV 10.3 fL Not Available [facility] (Lab) [address], [place], [address], 12/23/2020 02:57:58 12/23/19 21 12/22/2020 CBC w/ auto diff NRBC's 0.00 % 0 Not Available [facility] (Lab) [address], [place], [address], 12/23/2020 02:57:58 12/23/19 21 12/22/2020 CBC w/ auto diff absolute NRBCs 0.0 10'3/ uL 0 Not Available [facility] (Lab) [address], [place], [address], 12/23/2020 02:57:58 12/23/1912/22/2020 CBC w/ auto diff neutrophils 68.0 % 37.0-7 2.0 Not Available [facility] (Lab) [address], [place], [address], 12/23/2020 02:57:58 12/23/1912/22/2020 CBC w/ auto diff lymphocytes 19.0 % 16.0-4 8.0 Not Available [facility] (Lab) [address], [place], [address], 12/23/2020 02:57:58 12/23/1912/22/2020 CBC w/ auto diff monocytes 11.0 % 4.0-14 .0 Not Available [facility] (Lab) [address] [place], [address], 12/23/2020 02:57:58 12/23/19 21 12/22/2020 CBC w/ auto diff eosinophils 1.0 % 0.0-9. 0 Not Available [facility] (Lab) [address] [place], [address], 12/23/2020 02:57:58 12/23/19 21 12/22/2020 CBC w/ auto diff basophils 1.0 % 0.0-2. 0 Not Available [facility] (Lab) [address] [place], [address], 12/23/2020 02:57:58 12/23/19 21 12/22/2020 CBC w/ auto diff immature granulocytes 0.0 % no define d refere nce range Not Available [facility] (Lab) [address], [place], [address], 12/23/2020 02:57:58 12/23/19 21 12/22/2020 CBC w/ auto diff absolute neutrophils 4.2 10'3/ uL 1.1-6. 0 Not Available [facility] (Lab) [address] [place], [address], 12/23/2020 02:57:58 12/23/19 21 12/22/2020 CBC w/ auto diff absolute lymphocytes 1.2 10'3/ uL 0.7-3. 4 Not Available [facility] (Lab) [address] [place], [address], 12/23/2020 02:57:58 12/23/19 21 12/22/2020 CBC w/ auto diff absolute monocytes 0.7 10'3/ uL 0.3-1. 0 Not Available [facility] (Lab) [address] [place], [address], 12/23/2020 02:57:58 12/23/19 21 12/22/2020 CBC w/ auto diff absolute eosinophils 0.1 10'3/ uL 0.0-0. 6 Not Available [facility] (Lab) [address], [place], [address], 12/23/2020 02:57:58 12/23/19 21 12/22/2020 CBC w/ auto diff absolute basophils 0.1 10'3/ uL 0.0-0. 1 Not Available [facility] (Lab) [address], [place], [address], 12/23/2020 02:57:58 12/23/19 21 12/22/2020 CBC w/ [...] resul ts are expec shirley. Not Available [facility] (Lab) [address], [place], [address], 12/23/2020 02:57:58 12/23/19 21 12/22/2020 prola ctin, serum prolactin, total 23.50 NG/mL 4.79-2 3.30 high This assay was perfo rmed using [employer] ratio n reage nts and test kits. Value s obtai leida with other assay metho ds or kits canno t be used inter austin wendy . Not Available [facility] (Lab) [address], [place], [address], 12/23/2020 02:57:59 12/23/1912/22/2020 TSH, serum or plasm a TSH 2.28 uIU/m L 0.30-5 .33 Not Available [facility] (Lab) [address], [place], [address], 12/23/2020 02:57:59 09/12/19 25 09/12/2024 EMPOW ER MULTI -CANC ER (2+38 ) report summary NEGATI VE normal Negat kelvin for 40 out of 40 genes . No known patho genic or likel y patho genic varia nts were detec shirley in the 40 genes daisy zed. Not Available [facility] [address], [place], [address], 09/27/2024 19:33:21 09/12/19 25 09/12/2024 EMPOW ER MULTI -CANC ER (2+38 ) footnotes See Notes CLIA: ID #[id number] 2 Test perfo rmed by [employer]. [address] [facility] [address] [place] [address] Maura Brenner, Ph.D. , [facility] , Labor atory Dire tor Not Available [facility] [address], [place], [address], 09/27/2024 19:33:21 12/23/19 21 12/22/2020 US, pelvi s No observ ation record ed. kota [place] [address], [place], [address], 12/22/2020 17:21:37 12/23/19 21 12/22/2020 US, trans vagin al No observ ation record ed. mary ann Jain [address], [place], [address], 12/23/2020 16:42:19 12/23/19 21 12/22/2020 US, pelvi s No observ ation record ed. mary ann [address], [place], [address], 12/23/2020 16:42:19 Result Notes None recorded. Procedures Surgical History Date Name Laterality Status Provider Name and Address Organization Details Recorded Time Date of Last Pap Smear completed Nancie Lucero [facility] 09/12/2024 12:39:17 8 completed Yudith Slime [facility] 12/23/2020 11:35:01 5 cryosurgery completed Misty Beard [facility] 12/18/2020 10:09:21 6 plastic repair procedure completed Misty [facility] 12/18/2020 10:23:39 Imaging Results Imaging Date Name Status LastModified by Organization Details LastModified Time 12/22/2020 US, pelvis completed kota [place] [address], [place], [address], 12/22/2020 17:21:37 12/22/2020 US, transvaginal completed mary ann [place] [address], [place], [address], 12/23/2020 16:42:19 12/22/2020 US, pelvis completed mary ann [address] [facility], [place], [address], 12/23/2020 16:42:19 Procedure Notes None recorded. Medical Equipment None Reported. Allergies Allergen ID Allergen Name Allergen Category Reaction Reaction Severity Criticality Documentation Date Start Date Code Code System Note Provider Name and Address Organization Details Recorded Time 52851 mold extract environme nt Not available Not available Not available 12/18/2020 06949 8 RxNorm Misty jasmine, [facility] 10:11:53 12561 POLLEN EXTRACTS environme nt,medica tion Not available Not available Not available 12/18/2020 80324 6 RxNorm Misty jasmine, [facility] 10:11:59 89797 amoxicill in medicatio n Not available Not available Not available 12/18/2020 723 RxNorm Imsty Mcaley [facility] 10:12:05 Medications Name Sig Start Date [...] Not Available Not Available No t Available fluticasone propionate 50 mcg/actuati on nasal spray,suspe [...] Updated DateTime 12/18/2020 154.94 cm 30.6 kg/m2 52316.96 g 125 mm[Hg] 88 mm[Hg] Misty Beard [facility] 10:17:55 Date Recorded Body height Body mass index (BMI) Body weight Systolic blood pressure Diastolic blood pressure Provider Name and Address Organization Details Last Updated DateTime 12/23/2020 154.94 cm 30 kg/m2 78341.19 g 128 mm[Hg] 87 mm[Hg] Yudith Palencia [facility] 11:34:56 Date Recorded Body height Body mass index (BMI) Body weight Systolic blood pressure Diastolic blood pressure Provider Name and Address Organization Details Last Updated DateTime 09/12/2024 154.94 cm 35.1 kg/m2 09859.18 g 128 mm[Hg] 88 mm[Hg] Nancie Lucero [facility] 12:38:02 Social History Question Answer Notes LastModified by Organizat ion Details LastModified Time Tobacco Smoking Status Never Smoker Yudith Palencia [facility] 12/23/2020 11:35:05 Do You Have An [...] Or The Highest Degree You Have Received? [id number] Information not available 12/23/2020 What Is Your [...] Anxious, Or Unable To Sleep At Night)? [id number] Information not available 12/23/2020 Do You Use [...] 10:26:33 Mother Carcinoma of uterine cervix, invasive [email or web address] Not available 2024 12:02:52 Mother Carcinoma in situ of colon [email or web address] Not available 2024 12:02:52 Mother Carcinoma in situ of uterus [email or web address] Not available 2024 12:02:52 Father Asthma [email or web address] Not available 10:26:33 Father Diabetes mellitus [email or web address] Not available 2020 10:28:49 Sister Asthma [email or web address] Not available 10:26:33 Sister Carcinoma of uterine cervix, invasive Not available 2024 12:02:52 Sister Carcinoma of uterine cervix, invasive [email or web address] Not available 2024 12:02:52 Sister Carcinoma in situ of colon [email or web address] Not available 2024 12:02:52 Sister Diabetes mellitus smcaley Not available 2020 10:28:49 Sister Cyst of ovary [email or web address] Not available 2024 12:02:52 Sister Cyst of ovary Not available 2024 12:02:52 Sister Uterine prolapse Not available 2024 12:02:52 Sister Mental disorder [email or web address] Not available 2020 10:32:49 Sister Mental disorder [email or web address] Not available 2020 10:52:23 Unspecified Relation Carcinoma in situ of breast 2 great aunts Not available 09/12/2024 12:02:52 Maternal Grandmother Carcinoma in situ of colon [email or web address] Not available 2024 12:02:52 Maternal Grandmother Diabetes mellitus [email or web address] Not available 2020 10:28:49 Maternal Uncle Carcinoma in situ of colon x3 [email or web address] Not available 2024 12:02:52 Maternal Uncle Carcinoma in situ of lung x3 [email or web address] Not available 12:02:52 Medical History Condition Response Allergies (Food, seasonal, environmental ) N Other N Drug/Latex Allergies/Reactions N Breast Cancer N Blood Transfusion N Lung Disease N Dermatologic Disorders N Defects or Inherited Disease N Breast Problem N Gestational Diabetes N Hematologic disorders N Anesthesia Complications N History of STI N Deep Vein Thrombosis N Polycystic ovary syndrome N Anxiety Disorder Y Autoimmune disease N Arthritis Y Polyps N Infertility N Acid Reflux (GERD) Y History of abnormal pap N Cancer N Varicosities N Stroke N Neurologic/Epilepsy N Endometriosis N High Cholesterol N Fibromyalgia N Headaches N Kidney Disease N Heart Problems N Thyroid Problems N Kidney or Bladder Problems N GI Problems N Eating Disorder [...] SNOMED-CT Code Diagnosis ICD10 Code Diagnosis Note [id number] Davy Juarez MD [place] [address] [address] 12/18/2020 10:00:54 12/18/2020 12:50:12 Menometrorrhagia 214759140 N92.1 This patient is a 40-year-ol d [...] more than 30 minutes face to face. [id number] Davy Juarez MD [place] [address] [address] 12/22/2020 12:26:44 12/22/2020 13:19:14 Menometrorrhagia 311645713 N92.1 This patient is a 40-year-ol d [...] more than 30 minutes face to face. [id number] Davy Juarez MD [place] [address] [address] 12/23/2020 10:49:15 12/24/2020 15:29:43 Menometrorrhagia 619607399 N92.1 This patient is a 40-year-ol d female with severe menometror rhagia. We have agreed to perform endometria l ablation and laparoscop ic bilateral salpingect luis f. She understand s risks, benefits, and alternativ es. She has completed the informed Consent process and is ready to proceed. Menorrhagia [id number] N9 2.0 [id number] Davy Juarez MD [place] [address] [address] 09/12/2024 12:01:33 09/12/2024 13:46:00 Abnormal uterine bleeding [id number] 9100 N93.9 This patient is a 44-year-ol [...] total. Family his tory of heritable malignancy [id number] 9109 Z80.9 Menorrhagia 615209219 N9 2.0 Health Concerns Section Related Observation LastModified by Organization Detai ls LastModified Time None Recorded Concern Status LastModified by Organization Details LastModified Time None Recorded Advance Directives Directive N: Payers Encounter Date Sequence Insurance Name Policy Number Policy Dubois Covered Member ID Dubois Member ID Guarantor Name 12/18/2020 1 [facility] Marie Alford [id number] Bhartisa Quinteros 12/22/2020 1 [facility] [place] [id number] Bhartisa Quinteros 12/23/2020 1 [facility] Roc[place] [id number] Bhartisa Quinteros 09/12/2024 1 [facility] [id number] Bhartisa Quinteros [id number] Bharti Quinteros Notes Date Note Type Note [...] breath Davy Juarez MD [address], [place], [address], [facility] 12/18/2020 11:17:34 12/23/2020 text/html This patient [...] infection. Davy Juarez MD [address], [place], [address], [facility] 12/23/2020 20:27:28 09/12/2024 text/html This patient [...] total. Davy Juarez MD [address], [place], [address], [facility] 09/12/2024 13:03:47 OBGyn Episode Ob Episode Information Episode Created Date Number of Fetuses Patient Bloodtype Patient rh Status Prepregnancy Weight lbs Domestic Partner Domestic Partner Phone Father Name Beater Boss Status 12/19/19 21 1 CLOSED Fetus Data First Name Last Name Admitted to NICU Weight (g) Sex Living Outcome Pediatric Complications Fetus ID Race Codes Race Delivery Type 3175.14 4 M Full Term 44740 Vaginal Delivery Philippe Calculation Initial Philippe Date [...] Domestic Partner Domestic Partner Phone Father Name Beater Boss Status 12/19/19 21 1 CLOSED Fetus Data First Name Last Name Admitted to NICU Weight (g) Sex Living Outcome Pediatric Complications Fetus ID Race Codes Race Delivery Type , Spontane ous 87747 Philippe Calculation Initial Philippe Date Initial Exam [...] Domestic Partner Domestic Partner Phone Father Name Beater Boss Status 12/19/19 21 1 CLOSED Fetus Data First Name Last Name Admitted to NICU Weight (g) Sex Living Outcome Pediatric Complications Fetus ID Race Codes Race Delivery Type 3005.04 7 F 81058 Vaginal Delivery Philippe Calculation Initial Philippe Date [...] Domestic Partner Domestic Partner Phone Father Name Beater Boss Status 09/12/19 25 1 CLOSED Fetus Data First Name Last Name Admitted to NICU Weight (g) Sex Living Outcome Pediatric Complications Fetus ID Race Codes Race Delivery Type , Spontane ous 62001 Philippe Calculation Initial Philippe Date Initial Exam [...]
--- OUTSIDE RECORDS SUMMARY | 2024-11-26 01:15 | XMS_ITS | Clinical Summary ---
Author Organization [facility] Address [address] [place] [address] Phone Care Team Providers Care Toll Testboard Worker Name Role Phone Sterling Phillips DO Primary Care Provider [phone] Allergies Active Allergy Reactions Criticality Noted Date Comments Amoxicillin Hives,Nausea and Vomiting 6 Medications ALPRAZolam (XANAX) 0.5 mg tablet 6 Active esomeprazole (NEXIUM) 20 mg Capsule, Delayed Release(E.C.) Take 20 mg by mouth daily before breakfast. Active fluticasone (FLONASE) 50 mcg/spray [place], SuspensionIndic ations:Acute bacterial sinusitis Administer 2 Sprays [...] - 10/10/2024 11:59 PM CDT Hospital Encounter [facility] [address] [place] [address] Jenna Bell NP Discharge Disposition: Home or [...] Relation Name Comments Cancer Brother 1 Patrick [place] Cancer Brother 2 Ba Znea Diabetes Father Matteo Zena Heart Attack Father Matteo [place] Other Father Matteo [place] Passed of a ma ssive heart attack Stroke Father Matteo Zena 2 strokes Colon Cancer Maternal Grandmother Thelma Eng She pas sed of Colon Cancer Diabetes Maternal Grandmother Thelma Albertina Cancer Mother Evronica [place] Cervical Cervical Cancer Mother Veronica Zena Colon Cancer Mother Veronica Zena She passed of Colon Cancer Ovarian Cancer Mother Veronica [place] Breast Cancer Paternal Aunt Colon Cancer Sister 1 Rosio Avery She passed of C olon Cancer Ovarian Cancer Sister 1 Rosio Avery Cancer Sister 2 Whitney Silas Cervical Mental illness Sister 2 Whitney Silas Ovarian Cancer Sister 2 Whitney Silas Cancer Sister 3 Nilsa [place] Cervical Uterine Cancer Neg Hx Relation Name Status Comments Brother 1 Patrick [place] Brother 2 Ba [place] Father Matteo [place] Maternal Grandmother Thelma Albertina Mother Veronica Zena Paternal Aunt Sister 1 Rosio Avery Sister 2 Whitney Rosen Sister 3 Nilsa [place] Social History Tobacco Use Types Packs/Day Years [...] Sex Assigned at Female 09/15/2024 8:48 AM [employer] Legal Sex Female 5:07 PM [employer] Gender Identity Female 09/15/2024 8:48 AM [employer] F[employer] MANAGER Sexual Orientation Not on file Last Filed Vital Signs Vital Sign Reading Time Taken Comments Blood Pressure 121/88 08/10/2024 7:00 PM [employer] F[employer] MANAGER Pulse 94 08/10/2024 7:00 PM [employer] FARM MANAGER Temperature 36.8 C (98.3 F) 08/10/2024 4:15 PM [employer] FARM MANAGER Respiratory Rate 18 08/10/2024 7:00 PM [employer] FARM MANAGER Oxygen Saturation 97% 08/10/2024 7:00 PM [employer] FARM MANAGER Inhaled Oxygen Concentration - - Weight 82.3 kg (181 lb 6.4 oz) 08/10/2024 12:43 PM [employer] FARM MANAGER Height 154.9 cm (5' 1 ) 08/10/2024 12:43 PM [employer] FARM MANAGER Body Mass Index 34.28 08/10/2024 12:43 PM [employer] FARM MANAGER Plan of Treatment Health Maintenance Due Date [...] in one year. DICTATION LOCATION: Inez Aponte [facility] 10/10/2024 8:48 AM CDT BILATERAL SCREENING DIGITAL [...] 2D or 3D images. us Jenna Bell MUSICAL INSTRUMENT MAKER MAMMO ORDERABLES Final Res ult * CERV/VAG CYTO SCREEN PAP W/HPV (01/23/2024 8:52 AM CDT) CLINICAL INFORMATION [facility] Comment:None given LAST MENSTRUAL PERIOD [facility] Comment:NONE GIVEN PREV PAP: [facility] Comment:NONE GIVEN PREV BX: [facility] Comment:NONE GIVEN SOURCE [facility] Comment:Endocervix ADEQUACY: [facility] Comment: Satisfactory for evaluation. Endocervical/transformation zone component present. Age and/or menstrual status not provided PAP [facility]P [facility] [place] Comment: Cytology Results: Negative for intraepithelial lesion or malignancy. COMMENT (PAP TEST) [facility] [place] Comment: This Pap test has been evaluated with computer assisted technology. BILINGUAL SPEECH THERAPIST: Nickolas Puckett Comment: YQ, CT(ASCP) CT screening location: [place] [address] [place] [address] EXPLANATORY NOTE Que [email or web address] Puckett Comment: EXPLANATORY NOTE: The Pap is [...] information. HPV E6/E7 Not Detected Not Detected [employer] [place] Comment: Methodology: Sizer Machine-Mediated Amplification This assay detects E6/E7 viral messenger RNA (mRNA) from 14 high-risk HPV types (16,18,31,33,35,39,45,51,52,56,58,59,66,68). Cervical sources are required for HPV testing. If a vaginal source from a patient who has had a total hysterectomy with removal of cervix was submitted, please contact the testing laboratory for alternative testing options. For additional information, please refer to http://education.[employer]/faq/FUH427i9 (This link if provided for information/ educational purposes only.) Test Performed at: [facility] [address] [id number] Soryaa [facility] SWAB OF ENDOCERVIX / Unknown 01/23/2024 8:52 AM CDT 01/24/2024 1:44 AM CDT Jenna Bell NP PATHOLOGY/CYTOLOGY ORDERAB LES Final Result [facility] [phone] [employer] [id number] [id number] from Last 3 Months or Most Recently Relevant to Health Maintenance Insurance [facility] [id number] Care Teams Toll Testboard Worker Relationship Specialty Start Date End Date Sterling Phillips DO PCP - General 08/14/13
--- OUTSIDE RECORDS SUMMARY | 2024-11-26 01:15 | XMS_ITS | Data Portability ---
Author Organization [facility], Pediatrics[facility] Address [address] [place] [address] Assessment No assessment recorded. Plan of Treatment Reminders Order Date Submit Date Provider Last Modified By Organization Details Last Modified Time Details Appointments None recorded. Lab rapid SARS CoV 2 Ag, QL IA, respiratory specimen 2022 023 [facility], [address] [facility], [place], [address], 3 17:06:58 rapid strep group A, throat 2022 023 [facility], [address] [facility], [place], [address], 3 17:06:58 rapid flu (A+B) 2022 023 [facility], [address] [facility], [place], [address], 3 17:06:57 Referral None recorded. Procedures None recorded. Surgeries None recorded. Imaging None recorded. Medication Orders albuterol sulfate HFA 90 mcg/actuati on aerosol inhaler [address] [id number], [address] [place], [place], [address], 3 16:56:32 ondansetron 8 mg disintegrat ing tablet [address] [facility][id number], [address], [place], [address], 16:56:32 Patient TargetsNo targets recorded. Patient InstructionsNo instructions recorded. Reason for Referral None Reported. Results Created Date Observation Date Name Description Value Unit Range Abnormal Flag Note LastModifiedBy Organization Detail LastModifiedTime 02/18/20 23 02/17/2023 rapid flu (A+B) Flu negati ve Not Available [facility] [address] [place], [address], 02/17/2023 16:31:09 02/18/20 23 02/17/2023 rapid strep group A, throa t Strep negati ve Not Available [facility] [address] [place], [address], 02/17/2023 16:31:01 02/18/20 23 02/17/2023 rapid SARS CoV 2 Ag, QL IA, respi rator y speci men COVID-19 ANTIGEN negati ve Not Available [facility] [address] [place], [address], 02/17/2023 16:31:00 Result Notes None recorded. Medical Equipment None Reported. Allergies Allergen ID Allergen Name Allergen Category Reaction Reaction Severity Criticality Documentation Date Start Date Code Code System Note Provider Name and Address Organization Details Recorded Time [id number] amoxicill in medicatio n Not available Not available Not available 02/17/2023 723 [facility] Heike Parmar RN [facility] 16:11:44 Medications Name Sig Start Date Stop [...] Updated DateTime 3 154.94 cm 33.7 kg/m2 90489.1 6 g 101 /min 16 /min 98 % 98 % 98.5 [degF] 106 mm[Hg] 78 mm[Hg] Heike Parmar RN [facility] 16:13:26 Social History None recorded. Functional Status None recorded. Mental Status None recorded. Family History Nothing Reported. Medical History No medical history recorded. Gynecological HistoryNo gynecological history recorded. Obstetrics History GPAL:G 0 P 0 0 0 0 Past Encounters Encounter ID Performer Location Encounter Start Date Encounter Closed Date Diagnosis/Indication Diagnosis SNOMED-CT Code Diagnosis ICD10 Code Diagnosis Note [id number] Artemio Leach MD [facility] [address] [place] [address] 02/17/2023 15:48:23 02/17/2023 17:20:10 Headache 27394902 R51.9 RCA, RST, Flu neg Fatigue 08216313 R53.83 Asthma 158619568 J45.90 9 work note for 3 days Nausea 659205159 R11.0 Health Concerns Section Related Observation LastModified by Organization Detai ls LastModified Time None Recorded Concern Status LastModified by Organization Details LastModified Time None Recorded Advance Directives Directive None Recorded Payers Encounter Date Sequence Insurance Name Policy Number Policy Dubois Covered Member ID Dubois Member ID Guarantor Name 02/17/2023 1 [employer] Bharti Quinteros [id number] Bharti Quinteros Notes Date Note Type Note [...] induce asthma, bronchitis. Artemio Leach MD [address] [facility], [place], [address], On license of [facility] 02/17/2023 16:56:58 OBGyn Episode No OBEpisode recorded.
--- OUTSIDE RECORDS SUMMARY | 2024-11-26 01:15 | XMS_ITS | Referral Summary ---
Author Organization [facility] [address] Address [address] [place] [address] Care Team Providers Care Blade Changer Name Role Phone Sterling Phillips DO Primary [...] Comments Blood Pressure 125/85 08/04/2024 9:18 AM CORRECTIONAL MEDICINE PHYSICIAN Pulse 86 08/04/2024 9:18 AM CORRECTIONAL MEDICINE PHYSICIAN Temperature 36.8 C (98.3 F) 08/04/2024 9:18 AM CORRECTIONAL MEDICINE PHYSICIAN Respiratory Rate - - Oxygen Saturation 100% 08/04/2024 9:18 AM CORRECTIONAL MEDICINE PHYSICIAN Inhaled Oxygen Concentration - - Weight 83.3 kg (183 lb 9.6 oz) 08/04/2024 9:18 A M CORRECTIONAL MEDICINE PHYSICIAN Height 154.9 cm (5' 1 ) 08/04/2024 9:18 AM CORRECTIONAL MEDICINE PHYSICIAN Body Mass Index 34.69 08/04/2024 9:18 AM CORRECTIONAL MEDICINE PHYSICIAN Plan of Treatment Not on file Procedures [...] - [place] [id number] [facility] Department [place] [address] from Last 3 Months or Most Recently Relevant to Health Maintenance Insurance [facility] Care Teams Blade Changer Relationship Specialty Start Date End Date Sterling Phillips DO PCP - General Family Medicine 02/13/24
[2024-11-26] MEDS: LACTATED RINGERS 1,000 ML 30 ML IV CONT ×2 (09:20→12:37)
[2024-11-26] MEDS: KETOROLAC 15 MG/ML VIAL (*BKC) IV PUSH (09:39)
[2024-11-26] MEDS: ACETAMINOPHEN 500 MG TABLET 1000 MG PO ×3 (09:39→21:55)
--- NOTE | 2024-11-26 10:00 | PM.IMHP ---
H&P: HPI History of Present Illness Date/Time: 11/26/24 10:00 Chief Complaint: Heavy vaginal bleeding Narrative: This patient is a 44 year with severe menorrhagia who presents for robotic assisted hysterectomy with bilateral salpingo-oophorectomy. She understands risks, benefits, and alternatives. She has completed the informed consent process is ready to proceed. The patient understands the details of the procedure. The procedure has been explained in detail. She understands the risks. She understands that injuries may occur that result in hospitalization, more surgery, and severe illness. She understands risk of hemorrhage and infection. She denies any chest pain or shortness of breath. She denies any nausea, vomiting, fever, chills. Review of Systems Review of Systems: All systems reviewed & are unremarkable except as noted in HPI and below Constitutional: Constitutional: Denies chills, Denies fatigue, Denies fever(s) and Denies weakness Eyes: Eyes: Denies blurry vision, Denies change in vision, Denies loss of peripheral vision, Denies loss of vision, Denies other visual disturbances and Denies eye pain ENT: Denies vertigo, Denies dizziness, Denies hearing loss, Denies mouth pain, Denies nasal obstruction, Denies neck mass and Denies neck pain Cardiovascular: Cardiovascular: Denies chest pain, Denies diaphoresis, Denies syncope, Denies leg edema and Denies dyspnea Respiratory: Respiratory: Denies chest congestion, Denies cough, Denies hemoptysis, Denies dyspnea and Denies wheezing Gastrointestinal: Gastrointestinal: Denies abdominal pain, Denies constipation, Denies diarrhea, Denies nausea and Denies vomiting Genitourinary: Genitourinary: Denies hematuria, Denies change in libido, Denies nocturia, Denies genital lesions, Denies flank pain and Denies urinary urgency Musculoskeletal: Musculoskeletal: Denies abnormal gait, Denies back pain, Denies myalgias, Denies arthralgias, Denies joint swelling, Denies muscle weakness and Denies neck pain Integumentary/Breasts: Skin/Breast: Denies swelling, Denies breast pain, Denies breast mass, Denies dry skin, Denies nipple discharge, Denies unusual bruising and Denies jaundice Neurologic: Denies Neuro-related abnormal movements, Denies Abnormal speech present, Denies abnormal gait, Denies behavioral changes, Denies confusion, Denies vertigo, Denies dizziness, Denies syncope, Denies loss of vision, Denies memory loss, Denies convulsions and Denies weakness Psychiatric: Psychiatric: Denies abnormal sleep pattern, Denies behavioral changes, Denies change in libido, Denies confusion, Denies depression, Denies anhedonia and Denies memory loss Endocrine: Endocrine: Reports no additional endocrine complaints, Denies change in libido and Denies fatigue Hematologic/Lymphatic: Hematologic/Lymphatic: Reports no additional hematologic/lymphatic complaints Allergic/Immunologic: Allergic/Immunologic: Reports no additional allergic/immunologic complaints and Denies wheezing PMFSH Social History Social History Smoking status: Never smoker Substance use: never Substance use type: does not use Living arrangements: alone Spiritual care concerns: No Meds Home Medications and Allergies Home Medications ?Medication ?Instructions ?Recorded ?Confirmed ?Type esomeprazole magnesium 40 mg 40 mg PO DAILY 01/04/21 11/12/24 History capsule,delayed release (Nexium) loratadine 10 mg tablet 10 mg PO DAILY 01/04/21 11/12/24 History polysaccharide iron complex 150 mg 150 mg PO DAILY 01/04/21 11/12/24 History iron capsule (Ferrex) progesterone micronized 200 mg 200 mg PO BID 01/04/21 11/12/24 History capsule alprazolam 0.5 mg tablet 0.5 mg PO TID PRN anxiety 11/12/24 11/12/24 History citalopram 20 mg tablet 20 mg PO DAILY 11/12/24 11/12/24 History Allergies Allergy/AdvReac Type Severity Reaction Status Date / Time amoxicillin Allergy Unknown Verified 11/12/24 13:11 Exam Const: General: cooperative, healthy appearing, comfortable and no acute distress Orientation/consciousness: oriented to person, oriented to place and oriented to time HENMT: Head: normal to inspection Ears: external ears normal Face/Nose/Sinus: Normal external nose present and normal facial exam Face and sinus: normal facial exam Eyes: General: appearance normal, both eyes and all related structures Neck: Neck: normal visual inspection, trachea midline and supple Resp: Auscultation: clear to auscultation bilaterally, no crackles, no rales, no rhonchi and no wheezes Cardio: Rate: regular rate Rhythm: regular rhythm Heart sounds: no click, no murmurs and no rubs GI: GI Palp: No abdominal tenderness, No Soft to palpation, No Tenderness to palpation present (GI) and No Palpable mass present Auscultation: normal bowel sounds Skin: General skin exam: normal color and no rashes or lesions noted Neuro: General: oriented to person, oriented to place and oriented to time Extrem: General: normal to inspection, no joint enlargement, no clubbing, cyanosis or edema, no pedal edema and no calf tenderness Psych: Appearance: grossly normal Mental Status: mental status grossly normal Speech and movement: Normal speech and movement present Assessment and Plan Assessment and plan (1) Menorrhagia: Code(s): N92.0 - Excessive and frequent menstruation with regular cycle Status: Acute Plan This patient is a 44 year with severe menorrhagia who presents for robotic assisted hysterectomy with bilateral salpingo-oophorectomy. She understands risks, benefits, and alternatives. She has completed the informed consent process is ready to proceed.
--- NOTE | 2024-11-26 10:02 | WPDHPUPDATE1 ---
History and Physical Update Update Date/Time: 11/26/24 10:02 History and Physical has been reviewed, including an updated exam of the patient. There are NO changes in the patient's condition. Risks, benefits, and alternatives have been discussed and questions answered. Patient agrees to proceed with procedure.
--- NOTE | 2024-11-26 10:10 | WPDANESEPPF ---
Anes - Initial Pre Proc Eval Procedure: Operation Date: 11/26/24 10:30 Proposed Procedures p Robotic Assisted Hysterectomy with Bilateral Salpingo-oophorectomy - Davy Juarez MD Date/Time: 11/26/24 10:10 Surgeon: Davy Juarez MD Pre Op Diagnosis: Menorrhagia Patient Data Age: 44 Gender: F Height: 1.55 m Weight: 82.7 kg Allergies Allergy/AdvReac Type Severity Reaction Status Date / Time amoxicillin Allergy Unknown Verified 11/12/24 13:11 Home Medications ?Medication ?Instructions ?Recorded ?Confirmed ?Type esomeprazole magnesium 40 mg 40 mg PO DAILY 01/04/21 11/26/24 History capsule,delayed release (Nexium) loratadine 10 mg tablet 10 mg PO DAILY 01/04/21 11/26/24 History polysaccharide iron complex 150 mg 150 mg PO DAILY 01/04/21 11/26/24 History iron capsule (Ferrex) progesterone micronized 200 mg 200 mg PO BID 01/04/21 11/12/24 History capsule alprazolam 0.5 mg tablet 0.5 mg PO TID PRN anxiety 11/12/24 11/26/24 History citalopram 20 mg tablet 20 mg PO DAILY 11/12/24 11/26/24 History Patient hx anesthesia problems: none Family hx anesthesia problems: none Results Review: All pre-operative results and documents have been reviewed as part of the pre-operative evaluation. [facility] Social History Social History Smoking status: Never smoker Substance use: never Substance use type: does not use Living arrangements: alone Spiritual care concerns: No Anes - Eval Final PreProcedure Day of Procedure 11/26/24 10:10 Patient weight: normal Heart: regular rate and rhythm Lungs: clear to auscultation Airway: Mallampati scale class II Neurological: alert and oriented Last oral intake: >/= 8 hours ASA classification: II Emergent: no Anesthetic plan: proceed Anesthesia type and monitoring: general ETT and standard monitoring Results Review: All pre-operative results and documents have been reviewed as part of the pre-operative evaluation. Informed Consent: The patient's anesthetic plan and its attendant risks and benefits were discussed with the patient/family/POA. Questions were solicited and answers provided to the satisfaction of the patient/family/POA.
[2024-11-26] MEDS: ceFAZolin 2 GM/D5W 50 ML 2 GM/50 ML BAG IVPB (10:28)
[2024-11-26 10:35] LABS: BEDSIDEPREGUCG Negative (Negative)
[2024-11-26] MEDS: ceFAZolin SODIUM 1 GM VIAL (10:59)
--- NOTE | 2024-11-26 12:50 | W.PM.PROC2 ---
Procedure Note - Detailed Date of Procedure 11/26/24 Pre-op Diagnosis Menorrhagia Post-op Diagnosis Same Procedure Performed Robot assisted Total hysterectomy with bilateral Salpingo-oophorectomy. Surgeon Davy Juarez MD Anesthesia General Indications Heavy vaginal bleeding Findings Enlarged fibroid uterus, normal-appearing tubes and ovaries. Normal appearing vulva vagina and cervix. Description of Procedure This patient was taken to the operating room. She was prepped and draped in the dorsal lithotomy position after induction of general anesthesia. The uterine manipulator and Sarah cup were placed. This was done with a speculum and tenaculum. The speculum was placed. The cervix was grasped with a tenaculum. The stay sutures were placed at 3 and 9:00 a.m.. The stay sutures of 0 Vicryl were tied to the appropriately Size scope after it was slipped around the cervix.. The tip of the NICHOLAS manipulator was placed in the intrauterine cavity. The cup was slid into place around the cervix and into the fornices. It was locked into place. The sutures were then wrapped around the handle and tied under tension. A 8 mm skin incision was made in the left upper quadrant the abdomen. a 5 mm Visiport trocar was inserted into abdominal cavity and pneumoperitoneum was achieved. A 8 mm supraumbilical incision was made and a 8 mm trocar was inserted into the intrauterine cavity under direct visualization of the scope. an 8 mm incision was made in the right upper quadrant of the abdomen and an 8 mm robotic trocar was placed the inter uterine cavity under direct visualization the scope. An 11 mm trocar was inserted in the right upper quadrant of the abdomen rectal is a cystoscope after an incision was made there as well. The robot was docked. Electronic Orientation of the robot was performed. Bilateral ureteral lysis was performed. This was done from the pelvic brim down to the uterine artery. This was done with careful dissection using sharp and blunt dissection. The fallopian tubes and ovaries were removed bilaterally. The infundibulopelvic ligament was isolated after identification of the ureter. It was cauterized and transected with the vessel sealer fashion. The mesosalpinx on lateral of the ovary was cauterized transected the vessel sealer. In a stepwise fashion along the lateral aspects of the uterus the round ligament and broad ligaments were cauterized transected down to the level of the uterine arteries. A bladder flap was created in the bladder was moved distally to the end of the cervix and over the Sarah cup. The bilateral uterine arteries were cauterized and transected. Colpotomy was then performed. In a circumferential fashion the vagina was transected using unipolar cautery. The incision was made down on the Sarah cup. The uterus and cervix were taken out through the vagina. A pneumo occluder was placed in the vagina. The vaginal cuff was closed with a 0 V lock suture in a running fashion. The pelvis was irrigated with copious amounts antibiotic irrigation. The ureters were again examined and found to be intact and flowing freely under the uterine arteries into the bladder. The bladder was intact. It was examined directly. The vagina was irrigated with Betadine solution after removal of the Pneumo occluder. the trocars were removed after the robot was undocked. The skin was closed with subacute or Dermabond. The patient was taken to recovery room. She was stable condition. Sponge lap and needle counts were correct x2. Estimated Blood Loss 100 Urine Output -125.0 Drains Yes Packing No Pathology Yes Complications No immediate complications Condition Stable Disposition Floor
[2024-11-26] MEDS: fentaNYL CITRATE INJ (*CRX) 100 MCG/2 ML VIAL 25 MCG IV PUSH ×4 (13:04→13:30)
--- NOTE | 2024-11-26 14:16 | PC.NURSE ---
1407- patient, Bharti Quinteros, was admitted to OB 2nd Floor Room 292-00. Patient/family oriented to hospital policies and general routines including ID bracelet, bed and alarms, visiting hours, pain management, procedures, bathroom and other care routines, personal items, smoking policy, room service/diet, and visiting hours. Information on how to activate the Rapid Response Team has been discussed. Patient/Family are encouraged to report perceived risks to care and to ask questions if they do not understand what they are told or what they should do.
[2024-11-26] MEDS: SIMETHICONE 80 MG TAB.CHEW PO (14:29)
[2024-11-26] MEDS: oxyCODONE HCL (*CRX) 5 MG TAB IR PO ×2 (14:29→21:57)
[2024-11-26] MEDS: DEXTROSE 5%/0.45% SOD CHL 1,000 ML 125 ML IV CONT (14:30)
[2024-11-26] MEDS: KETOROLAC 30 MG/ML VIAL (*BKC) IV PUSH ×2 (16:12→21:58)
[2024-11-26] MEDS: DOCUSATE SODIUM 100 MG CAPSULE PO (21:55)
[2024-11-26] MEDS: PANTOPRAZOLE 40 MG TABLET PO (21:55)
[2024-11-27 01:10] VITALS: BP 110/65; PULSE 94; RESP 16; TEMP 37.2; O2SAT 97
[2024-11-27] MEDS: ALPRAZolam (*CRX) 0.5 MG TABLET PO (01:15)
[2024-11-27] MEDS: KETOROLAC 30 MG/ML VIAL (*BKC) IV PUSH (04:11)
[2024-11-27] MEDS: ACETAMINOPHEN 500 MG TABLET 1000 MG PO (04:12)
[2024-11-27] MEDS: oxyCODONE HCL (*CRX) 5 MG TAB IR PO (04:12)
[2024-11-27 04:18] VITALS: BP 127/87; PULSE 83; RESP 16; TEMP 36.6; O2SAT 96
[2024-11-27 08:20] VITALS: BP 118/75; PULSE 82; RESP 16; TEMP 37.5; O2SAT 96
--- NOTE | 2024-11-27 08:25 | PM.GYNPNOP ---
[facility] - A/P Postoperative Procedures: Procedures Operation Date: 11/26/24 10:30 Actual Procedure Side Surgeon p Robotic Assisted Hysterectomy with Bilateral Salpingo-oophorectomy Bilateral Davy Juarez MD Postoperative day: 1 Postoperative status: doing well Postoperative plan: see orders Time Spent With Patient Time: Total time spent is greater than 50% in coordination of care (as documented) at patient's floor/unit and/or counseling patient: Time with patient: less than 15 minutes [facility]- PN:Subj Post-Op Subjective Date/time seen: 11/27/24 08:25 Subjective: patient reports feeling better, patient has no complaints and pain is well controlled Exam Const: General: healthy appearing, comfortable and no acute distress Resp: Auscultation: clear to auscultation bilaterally, no rales, no rhonchi and no wheezes Cardio: Rate: regular rate Heart sounds: no click, no murmurs and no rubs GI: Inspection: non-distended Auscultation: normal bowel sounds Extrem: General: normal to inspection, no pedal edema and no calf tenderness [facility] - PN: Obj Data Vital Signs Vital Signs: Vital Signs - 24 hr 11/26/24 08:35 11/26/24 12:37 11/26/24 12:40 Temperature 97.9 F 97.0 F L Pulse Rate 83 106 H 100 Respiratory Rate 16 20 17 Blood Pressure 155/89 H 108/67 122/80 Pulse Oximetry 96 96 97 Oxygen Delivery Room Air Simple Face Mask Simple Face Mask Oxygen Flow Rate 8 8 11/26/24 12:45 11/26/24 13:00 11/26/24 13:15 Temperature Pulse Rate 98 97 94 Respiratory Rate 16 15 15 Blood Pressure 132/77 131/81 140/78 Pulse Oximetry 98 99 95 Oxygen Delivery Simple Face Mask Simple Face Mask Room Air Oxygen Flow Rate 8 8 11/26/24 13:30 11/26/24 13:45 11/26/24 14:00 Temperature Pulse Rate 91 89 93 Respiratory Rate 16 14 16 Blood Pressure 142/86 H 134/89 130/80 Pulse Oximetry 94 94 94 Oxygen Delivery Room Air Room Air Room Air Oxygen Flow Rate 11/26/24 14:10 11/26/24 14:30 11/26/24 20:20 Temperature 98.4 F 99.2 F Pulse Rate 91 91 112 H Respiratory Rate 16 16 16 Blood Pressure 128/78 128/88 Pulse Oximetry 96 96 96 Oxygen Delivery Room Air Oxygen Flow Rate 11/27/24 01:10 11/27/24 04:18 Temperature 99 F 97.8 F Pulse Rate 94 83 Respiratory Rate 16 16 Blood Pressure 110/65 127/87 Pulse Oximetry 97 96 Oxygen Delivery Oxygen Flow Rate Intake/Output Intake/Output: Intake & Output 11/24/24 11/25/24 11/26/24 11/27/24 23:59 23:59 23:59 23:59 Intake Total 400 Output Total 625 Balance -225 Meds/Results Medications: Active Medications Generic Name Dose Route Start Last Admin Trade Name Freq PRN Reason Stop Dose Admin Acetaminophen 1,000 mg 11/26/24 18:00 11/27/24 04:12 Acetaminophen 500 Mg Tablet PO 1,000 mg Q6HR SRI Administration Alprazolam 0.5 mg 11/26/24 14:02 11/27/24 01:15 Alprazolam (*Crx) 0.5 Mg Tablet PO 0.5 mg TID PRN Administration anxiety Citalopram Hydrobromide 20 mg 11/27/24 09:00 Citalopram Hydrobromide 20 Mg Tablet PO DAILY SRI Docusate Sodium 100 mg 11/26/24 21:00 11/26/24 21:55 Docusate Sodium 100 Mg Capsule PO 100 mg Q12HR SRI Administration Dextrose/Sodium Chloride 1,000 mls @ 125 mls/hr 11/26/24 14:02 11/26/24 14:30 Dextrose 5% Sodium Chloride 0.45% IV CONT 125 mls/hr .Q8H SRI Administration Ibuprofen 600 mg 11/27/24 12:00 Ibuprofen 600 Mg Tablet PO Q6HR SRI Loratadine 10 mg 11/27/24 09:00 Loratadine 10 Mg Tablet PO DAILY SRI Naloxone HCl 0.1 mg 11/26/24 14:02 Naloxone Hcl 0.4 Mg/Ml Vial IV PUSH Q2M PRN Respiratory rate less than 10 Ondansetron HCl 4 mg 11/26/24 14:02 Ondansetron Inj 4 Mg/2 Ml Vial IV PUSH Q6H PRN Nausea And Vomiting Oxycodone HCl 5 mg 11/26/24 14:02 11/27/24 04:12 Oxycodone Hcl (*Crx) 5 Mg Tab Ir PO 5 mg Q4H PRN Administration Pain Rated 4-6 Oxycodone HCl 10 mg 11/26/24 14:02 Oxycodone Hcl (*Crx) 5 Mg Tab Ir PO Q6H PRN Pain Rated 7-10 Pantoprazole Sodium 40 mg 11/26/24 21:00 11/26/24 21:55 Pantoprazole 40 Mg Tablet PO 40 mg Q12HR SRI Administration Polysaccharide Iron Complex 150 mg 11/27/24 09:00 Polysaccharide Iron Complex 150 Mg Capsule PO DAILY SRI Simethicone 80 mg 11/26/24 17:00 11/26/24 14:29 Simethicone 80 Mg Tab.Chew PO 80 mg TIDWM SRI Administration Labs Labs: Laboratory Results - last 24 hr 11/26/24 08:40 POC Urine HCG, Qual Negative
[2024-11-27 08:40] VITALS: PULSE 82; RESP 16; O2SAT 96
[2024-11-27] MEDS: PANTOPRAZOLE 40 MG TABLET PO (08:43)
[2024-11-27] MEDS: CITALOPRAM HYDROBROMIDE 20 MG TABLET PO (08:44)
[2024-11-27] MEDS: SIMETHICONE 80 MG TAB.CHEW PO (08:44)
[2024-11-27] MEDS: DOCUSATE SODIUM 100 MG CAPSULE PO (08:44)
[2024-11-27] MEDS: POLYSACCHARIDE IRON COMPLEX 150 MG CAPSULE PO (08:44)
[2024-11-27] MEDS: LORATADINE 10 MG TABLET PO (08:44)
--- NOTE | 2024-11-27 09:07 | WPDANESPN ---
Anes - Prog Note Post-Op Date/Time: 11/27/24 09:07 Cardiovascular status: normal Respiratory status: normal Airway patency: baseline Mental status: baseline Post-Op hydration status: normal Vital Signs: Last Vital Signs Temp 37.5 C 11/27/24 08:20 Pulse 82 11/27/24 08:20 Resp 16 11/27/24 08:20 BP 118/75 11/27/24 08:20 Pulse Ox 96 11/27/24 08:20 O2 Del Method Room Air 11/26/24 14:30 O2 Flow Rate 8 11/26/24 13:00 Pain Score (VAS): 0/10 I/O: Intake & Output 11/26/24 11/27/24 11/27/24 23:59 07:59 15:59 Intake Total 200 Output Total 625 Balance -425 11/26/24 08:40 POC Urine HCG, Qual Negative Post-procedural complaints: none Patient Feedback: Patient satisfied with anesthetic care.
== END 2024-11-27 10:25 | disposition home or self-care (01) ==
LOC: ANHSURGERY 08:28 → ANHOB2 14:04
PROVIDERS: Visit Provider Obstetrics & Gynecology
PROC: (CPT 58571; principal; 2024-11-26 10:30)
DX: N92.0 Excessive and frequent menstruation with regular cycle (principal); N80.03 Adenomyosis of the uterus; N83.8 Other noninflammatory disorders of ovary, fallopian tube and broad ligament; N70.11 Chronic salpingitis; N83.02 Follicular cyst of left ovary; N83.01 Follicular cyst of right ovary
CPT/HCPCS: 58571; S2900; 88307; 99199; A9270; J0690; J1100; J1171; J1885; J2250; J2405; J2704; J3010; J7120; Q9968